=== PATIENT | female | born 1970 | race Caucasian/White ===

== ENCOUNTER 2016-12-08 07:56 | Inpatient (IN) | payer OTHER ==
[~2016-12-08] VITALS: Ht 160 cm; Wt 100.0 kg
[~2016-12-08 07:56] MED LIST: ALBU17I INH; ALLE30TA3 PO; CARB200T16 PO; FIORTAB4 PO; FLUTI220I INH; OMEP20CA5 PO; TOPI25 PO
[2016-12-08 07:58] VITALS: BP 125/72; PULSE 110; RESP 20; TEMP 98.5; O2SAT 96
[2016-12-08] MEDS ORDERED: DOXY1CAP74 PO (08:15)
[2016-12-08] MEDS ORDERED: OMEP20TA PO (08:23)
[2016-12-08] MEDS ORDERED: VERA40TA PO (08:23)
[2016-12-08] MEDS ORDERED: SODIUM CHLOR 0.9% 1000 ML INJ 800 ML IV ONE (08:23)
[2016-12-08] MEDS ORDERED: TEGR200T PO (08:23)
[2016-12-08] MEDS ORDERED: ZOCO20TA PO (08:23)
[2016-12-08] MEDS ORDERED: SODIUM CHLOR 0.9% 1000 ML INJ 1,000 ML IV ONE (08:23)
[2016-12-08] MEDS ORDERED: MORPHINE SULFATE 4 MG/ML INJ IV PUSH ONE (08:30)
[2016-12-08] MEDS ORDERED: ACETAMINOPHEN 325 MG TAB PO ONE (08:30)
--- NOTE | 2016-12-08 08:38 | PD ---
HPI Chief Complaint: Lump, Cyst, Hernia Time Seen by Provider: 08:18 Travel History International Travel<30 days: No Contact w/Intl Traveler<30days: No Traveled to known affect area: No History of Present Illness HPI 46-year-old female with history of seizure disorder on Tegretol, neutropenia and leukopenia thought to be secondary to Tegretol, status post incision and drainage of left axillary abscess yesterday by her primary care physician Dr. Samuel and started on doxycycline, here for evaluation of increased pain and chills. The patient reports feeling chills and having sweats throughout the night last night. Pain has increased in her left axilla, is moderate to severe , worse with movement and palpation, constant. PFSH Past Medical History Arthritis: Yes Asthma: Yes Autoimmune Disease: No Blood Disorders: No Anxiety: No Depression: Yes Heart Rhythm Problems: No Cancer: No Cardiovascular Problems: Yes High Cholesterol: No Chemotherapy: No Chest Pain: Yes Congestive Heart Failure: No COPD: No Cerebrovascular Accident: No Diabetes: No Diminished Hearing: No Endocrine: No GERD: Yes Glaucoma: No Genitourinary: Yes Headaches: Yes Hepatitis: No Hiatal Hernia: No Hypertension: No Immune Disorder: No Kidney Stones: No Medical other: Yes (MS) Musculoskeletal: Yes Neurologic: Yes Psychiatric: Yes Reproductive: No Respiratory: Yes Migraines: Yes Myocardial Infarction: No Radiation Therapy: No Renal Failure: No Seizures: Yes Sickle Cell Disease: No Sleep Apnea: No Thyroid Disease: No Ulcer: No Tetanus Vaccination: > 5 Years Influenza Vaccination: No ?: Not Menopausal: Yes : 1 Para: 0 : 1 Past Surgical History Abdominal Surgery: No AICD: No Appendectomy: No Arteriovenous Shunt: No Body Medical Devices: none Cardiac Surgery: No Cholecystectomy: No Ear Surgery: No Endocrine Surgery: No Eye Surgery: No Genitourinary Surgery: No Gynecologic Surgery: No Hysterectomy: Yes (2007) Insulin Pump: No Joint Replacement: No Oral Surgery: No Pacemaker: No Thoracic Surgery: Yes (THORACOTOMY LEFT 2004) Other Surgery: Yes (RT BREAST BIPOSIES X3 -UNKNOWN DATE) Social History Alcohol Use: No Tobacco Use: No Substance Use: No Allergies-Medications (Allergen,Severity, Reaction): Coded Allergies: Aspirin (Verified Allergy, Severe, nausea, 12/08/16) Codeine (Verified Allergy, Severe, rash, 12/08/16) Sulfa (Verified Allergy, Severe, rash, 12/08/16) Reported Meds & Prescriptions Reported Meds & Active Scripts Active Reported Verapamil (Verapamil HCl) 40 Mg Tab 40 Mg PO BID Zocor (Simvastatin) 20 Mg Tab 20 Mg PO DAILY Omeprazole 20 Mg Tab 20 Mg PO DAILY Tegretol (Carbamazepine) 200 Mg Tab 200 Mg PO BID Doxycycline 40 Mg Cap 40 Mg PO DAILY Review of Systems Except as stated in HPI: all other systems reviewed are Neg Physical Exam Narrative GENERAL: Well-developed, well-nourished, no acute distress. SKIN: Warm and dry. Left axilla with area of warmth and erythema and induration with an incision in the central aspect of induration with packing in place, no drainage. No signs of lymphangitis. HEAD: Atraumatic. Normocephalic. EYES: Pupils equal and round. No scleral icterus. No injection or drainage. ENT: Mucous membranes pink and moist. NECK: Trachea midline. No JVD. CARDIOVASCULAR: Tachycardic, rate 110, regular. No murmur appreciated. RESPIRATORY: No accessory muscle use. Clear to auscultation. Breath sounds equal bilaterally. GASTROINTESTINAL: Abdomen soft, non-tender, nondistended. MUSCULOSKELETAL: No obvious deformities. No clubbing. No cyanosis. No edema. NEUROLOGICAL: Awake and alert. No obvious cranial nerve deficits. Motor grossly within normal limits. Normal speech. PSYCHIATRIC: Appropriate mood and affect; insight and judgment normal. Data Data Last Documented VS Vital Signs Date Time Temp Pulse Resp B/P Pulse Ox O2 Delivery O2 Flow Rate FiO2 12/08/16 08:51 98 Room Air 12/08/16 07:58 98.5 110 20 125/72 Orders Complete Blood Count With Diff (12/08/16 08:23) Comprehensive Metabolic Panel (12/08/16 08:23) Lactic Acid Sepsis Protocol (12/08/16 08:23) Influenzae A/B Antigen (12/08/16 08:23) Blood Culture (12/08/16 08:23) Chest, Single Ap (12/08/16 08:23) Blood Glucose (12/08/16 08:23) Ecg Monitoring (12/08/16 08:23) Iv Access Insert/Monitor (12/08/16 08:23) Oximetry (12/08/16 08:23) Oxygen Administration (12/08/16 08:23) Acetaminophen (Tylenol) (12/08/16 08:30) Sodium Chlor 0.9% 1000 Ml Inj (Ns 1000 M (12/08/16 08:23) Sodium Chlor 0.9% 1000 Ml Inj (Ns 1000 M (12/08/16 08:23) Morphine Inj (Morphine Inj) (12/08/16 08:30) Vancomycin Inj (Vancomycin Inj) (12/08/16 08:45) Labs Laboratory Tests Test 12/08/16 08:30 White Blood Count 10.9 TH/MM3 Red Blood Count 4.16 MIL/MM3 Hemoglobin 12.5 GM/DL Hematocrit 36.1 % Mean Corpuscular Volume 86.9 FL Mean Corpuscular Hemoglobin 30.0 PG Mean Corpuscular Hemoglobin 34.5 % Concent Red Cell Distribution Width 13.5 % Platelet Count 170 TH/MM3 Mean Platelet Volume 7.9 FL Neutrophils (%) (Auto) 76.6 % Lymphocytes (%) (Auto) 12.2 % Monocytes (%) (Auto) 10.7 % Eosinophils (%) (Auto) 0.3 % Basophils (%) (Auto) 0.2 % Neutrophils # (Auto) 8.3 TH/MM3 Lymphocytes # (Auto) 1.3 TH/MM3 Monocytes # (Auto) 1.2 TH/MM3 Eosinophils # (Auto) 0.0 TH/MM3 Basophils # (Auto) 0.0 TH/MM3 CBC Comment DIFF FINAL Differential Comment Sodium Level 137 MEQ/L Potassium Level 3.6 MEQ/L Chloride Level 102 MEQ/L Carbon Dioxide Level 25.4 MEQ/L Anion Gap 10 MEQ/L Blood Urea Nitrogen 8 MG/DL Creatinine 0.72 MG/DL Estimat Glomerular Filtration 87 ML/MIN Rate Random Glucose 117 MG/DL Lactic Acid Level 0.9 mmol/L Calcium Level 8.5 MG/DL Total Bilirubin 0.6 MG/DL Aspartate Amino Transf 11 U/L (AST/SGOT) Alanine Aminotransferase 22 U/L (ALT/SGPT) Alkaline Phosphatase 79 U/L Total Protein 7.1 GM/DL Albumin 3.3 GM/DL [facility] Medical Decision Making Medical Screen Exam Complete: Yes Emergency Medical Condition: Yes Medical Record Reviewed: Yes Differential Diagnosis Sepsis, bacteremia, cellulitis, abscess, neutropenia Narrative Course Initial vital signs show heart rate 110, blood pressure 125/72, pulse ox 98% on room air, oral temp of 98.5F. CBC is essentially unremarkable. CMP is essentially unremarkable. Lactic acid is 0.9. Chest x-ray shows no acute disease. Patient was given 2 L of normal saline and IV vancomycin. Case discussed with the patient's primary care physician Dr. Samuel who performed incision and drainage of left axillary abscess yesterday. He states that the patient was recently taken off of Aubagio, and she may have some residual immunosuppression from this medication. He agrees with admitting the patient for overnight observation and IV antibiotics. Case discussed with [facility] hospitalist Dr. Rodgers who will admit the patient to his service. Diagnosis Primary Impression: Abscess of left axilla Additional Impression: SIRS (systemic inflammatory response syndrome) Admitting Information Admitting Physician Requests: Observation Jermain See MD Dec 08, 2016 08:38
[2016-12-08] MEDS ORDERED: VANCOMYCIN INJ 1,000 MG in SODIUM CHLOR 0.9% 250 ML INJ 250 ML IV ONE (08:45)
[2016-12-08 08:51] VITALS: O2SAT 98
[2016-12-08 08:59] LABS: AUTOMATED NEUTROPHIL # 8.3 TH/MM3 (1.8-7.7); BASOPHIL % 0.2 % (0.0-2.0); EOSINOPHIL % 0.3 % (0.0-4.0); HEMATOCRIT 36.1 % (35.0-46.0); HEMO FLAGS DIFF FINAL; LYMPH % 12.2 % (9.0-44.0); LYMPHOCYTE # 1.3 TH/MM3 (1.0-4.8); MEAN CELL VOLUME 86.9 FL (80.0-100.0); MEAN CORPUSCULAR HGB CONC 34.5 % (32.0-36.0); MONO % 10.7 % (0.0-8.0); NEUT % 76.6 % (16.0-70.0); PLATELET COUNT 170 TH/MM3 (150-450); RED BLOOD COUNT 4.16 MIL/MM3 (4.00-5.30); RED CELL DISTRIBUTION WIDTH 13.5 % (11.6-17.2); WHITE BLOOD COUNT 10.9 TH/MM3 (4.0-11.0)
[2016-12-08 09:04] LABS: ANION GAP 10 MEQ/L (5-15); AST (GOT) 11 U/L (15-37); BICARBONATE 25.4 MEQ/L (21.0-32.0); BLOOD UREA NITROGEN 8 MG/DL (7-18); CHLORIDE 102 MEQ/L (98-107); GLOMERULAR FILTRATION RATE 87 ML/MIN (>89); POTASSIUM 3.6 MEQ/L (3.5-5.1); SODIUM (NA) 137 MEQ/L (136-145)
[2016-12-08 09:07] LABS: ALKALINE PHOSPHATASE 79 U/L (45-117); ALT (GPT) 22 U/L (10-53); TOTAL BILIRUBIN ADULT 0.6 MG/DL (0.2-1.0)
--- NOTE | 2016-12-08 09:15 | RADRPT ---
EXAM DATE/TIME: 12/08/2016 08:39 [facility] COMPARISON: No previous studies available for comparison. INDICATIONS : Cough, fever, and hives. MEDICAL HISTORY : None. SURGICAL HISTORY : None. ENCOUNTER: Initial ACUITY: 1 day PAIN SCORE: 0/10 LOCATION: Bilateral chest FINDINGS: A single view of the chest demonstrates the lungs to be symmetrically aerated without evidence of mas s, infiltrate or effusion. The cardiomediastinal contours are unremarkable. Osseous structures are intact. CONCLUSION: No acute disease. Mylene Muir MD on December 08, 2016 at 9:14 Board Certified Radiologist. This report was verified electronically.
[2016-12-08 12:27] VITALS: BP 129/73; PULSE 92; RESP 16; TEMP 98.1; O2SAT 98
[2016-12-08] MEDS ORDERED: MORPHINE SULFATE 4 MG/ML INJ IV PUSH PRN ×2 (14:30)
[2016-12-08] MEDS ORDERED: Vancomycin Consult Pharmacy 1 EA OTHER SCH (14:30)
--- NOTE | 2016-12-08 14:33 | HHI.HP ---
HPI Service [facility] Hospitalists Primary Care Physician Francis Samuel, PhD, MD Admission Diagnosis left axillary abscess, SIRS Chief Complaint: left axilla pain. Travel History International Travel<30 Days: No Contact w/Intl Traveler <30 Da: No Traveled to Known Affected Are: No History of Present Illness Pt is 45 yo dx with MS who developed left axillary abscess this past week. Went to pcp yesterday and had incision and drainage. gauze packed. doxy started. today more nausea and pain. fever and chills. In ED noted to have cellulitis extending from the wound mostly posterior. given vanc in ED. Review of Systems Other left axillary abscess f/c nausea Past Family Social History Past Medical History seizure d/o hyperlipidema gerd migraines multiple sclerosis Reported Medications Verapamil (Verapamil HCl) 40 Mg Tab 40 Mg PO BID Zocor (Simvastatin) 20 Mg Tab 20 Mg PO DAILY Omeprazole 20 Mg Tab 20 Mg PO DAILY Tegretol (Carbamazepine) 200 Mg Tab 200 Mg PO BID Doxycycline 40 Mg Cap 40 Mg PO DAILY Allergies: Coded Allergies: Aspirin (Verified Allergy, Severe, nausea, 12/08/16) Codeine (Verified Allergy, Severe, rash, 12/08/16) Sulfa (Verified Allergy, Severe, rash, 12/08/16) Family History nc Social History no etoh/tob Physical Exam Vital Signs heent neg heart reg lung cta abd s/nt ext no edema Left axilla: gauze packed into small incision with some purelence draining. the surrounding tissue is erythematous/tender and swollen and mostly extending posteriorly. Vital Signs Date Time Temp Pulse Resp B/P Pulse Ox O2 Delivery O2 Flow Rate FiO2 12/08/16 12:27 98.1 92 16 129/73 98 Room Air 12/08/16 09:31 18 12/08/16 08:51 98 Room Air 12/08/16 08:51 98 Room Air 12/08/16 07:58 98.5 110 20 125/72 96 Room Air Laboratory Laboratory Tests Test 12/08/16 08:30 White Blood Count 10.9 Red Blood Count 4.16 Hemoglobin 12.5 Hematocrit 36.1 Mean Corpuscular Volume 86.9 Mean Corpuscular Hemoglobin 30.0 Mean Corpuscular Hemoglobin 34.5 Concent Red Cell Distribution Width 13.5 Platelet Count 170 Mean Platelet Volume 7.9 Neutrophils (%) (Auto) 76.6 Lymphocytes (%) (Auto) 12.2 Monocytes (%) (Auto) 10.7 Eosinophils (%) (Auto) 0.3 Basophils (%) (Auto) 0.2 Neutrophils # (Auto) 8.3 Lymphocytes # (Auto) 1.3 Monocytes # (Auto) 1.2 Eosinophils # (Auto) 0.0 Basophils # (Auto) 0.0 CBC Comment DIFF FINAL Differential Comment Sodium Level 137 Potassium Level 3.6 Chloride Level 102 Carbon Dioxide Level 25.4 Anion Gap 10 Blood Urea Nitrogen 8 Creatinine 0.72 Estimat Glomerular Filtration 87 Rate Random Glucose 117 Lactic Acid Level 0.9 Calcium Level 8.5 Total Bilirubin 0.6 Aspartate Amino Transf 11 (AST/SGOT) Alanine Aminotransferase 22 (ALT/SGPT) Alkaline Phosphatase 79 Total Protein 7.1 Albumin 3.3 Date/Time Procedure Status Source Growth 12/08/16 08:35 Aerobic Blood Culture Received Blood Peripheral Pending 12/08/16 08:35 Anaerobic Blood Culture Received Blood Peripheral Pending 12/08/16 08:30 Influenza Types A,B Antigen (ANUJ) - Final Complete Nasal Washing NEGATIVE FOR FLU A AND B ANTIGEN.... Result Diagram: 12/08/1630 12/08/1630 Assessment and Plan Problem List: (1) Abscess of left axilla Status: Acute Plan: Left axillary abscess s/p I/D 12/07 by pcp now with progressive cellulitis. probably staph or strep. gs and cx taken from the left axillary wound will change packing daily get soft tissue u/s to evaluate for more abscess and if so then consult GS broad abx coverage for now. f/u blood cx morphine and zofran for pain/nausea dvt prophylaxis. I vesna line around the cellulitis and nursing to call if extending. (2) Cellulitis Status: Acute Plan: see above (3) Multiple sclerosis Status: Chronic Plan: no treatment x 1 month. (4) GERD (gastroesophageal reflux disease) Status: Chronic Travis Rodgers MD Dec 08, 2016 14:33
[2016-12-08] MEDS: ONDANSETRON HCL 4 MG/2 ML VIAL IV PUSH PRN ×2 (14:42→18:55)
[2016-12-08] MEDS: VANCOMYCIN 1,500 MG/NS 500 ML IV SCH ×2 (16:21)
[2016-12-08 16:30] VITALS: BP 125/66; PULSE 90; RESP 16; TEMP 98.3; O2SAT 94
--- NOTE | 2016-12-08 17:24 | RADRPT ---
EXAM DATE/TIME: 12/08/2016 16:50 [facility] COMPARISON: No previous studies available for comparison. INDICATIONS : Abscess. MEDICAL HISTORY : Gastroesophageal reflux disease. Arthritis. Seizures. Migraines. Chest pain. Asthma. Urinary tract infections. Depression. SURGICAL HISTORY : Hysterectomy. Left thoracotomy. Athroscopic knee. Right breast biopsy x3. ENCOUNTER: Initial ACUITY: 1 week PAIN SCORE: 7/10 LOCATION: Left arm. AREA EVALUATED: Left axilla. FINDINGS: MASSES: None. FLUID COLLECTIONS: There is a small complex collection beneath the incision measuring 1.8 x 0.9 x 1.3 cm which is nonspe cific. OTHER: Negative. CONCLUSION: Small complex collection beneath the incision measuring 1.8 x 0.9 x 1.3 cm which is n onspecific. Gonsalo Dye MD on December 08, 2016 at 17:21 Board Certified Radiologist. This report was verified electronically.
[2016-12-08] MEDS: PIPERACIL-TAZO 3.375 GM PREMIX 50 ML IV SCH ×2 (18:55→22:21)
[2016-12-08 20:57] VITALS: BP 117/68; PULSE 92; RESP 18; TEMP 98.3; O2SAT 98
[2016-12-08] MEDS ORDERED: VERAPAMIL HCL 40 MG TAB PO SCH (21:00)
[2016-12-08] MEDS: carBAMazepine 200 MG TAB PO SCH (22:20)
[2016-12-09] VITALS (7 sets, daily range): BP systolic 114–128; BP diastolic 55–76; PULSE 81–89; RESP 16–20; TEMP 97.4–98.4; O2SAT 96–99
[2016-12-09] MEDS: PIPERACIL-TAZO 3.375 GM PREMIX 50 ML IV SCH ×4 (04:14→22:17)
[2016-12-09] MEDS: VANCOMYCIN 1,500 MG/NS 500 ML IV SCH ×4 (05:04→16:24)
[2016-12-09] MEDS: ONDANSETRON HCL 4 MG/2 ML VIAL IV PUSH PRN ×3 (05:07→22:18)
[2016-12-09 07:28] LABS: AUTOMATED NEUTROPHIL # 7.9 TH/MM3 (1.8-7.7); BASOPHIL % 0.4 % (0.0-2.0); EOSINOPHIL # 0.1 TH/MM3 (0-0.4); EOSINOPHIL % 0.6 % (0.0-4.0); HEMATOCRIT 34.2 % (35.0-46.0); HEMO FLAGS DIFF FINAL; LYMPH % 16.6 % (9.0-44.0); LYMPHOCYTE # 1.8 TH/MM3 (1.0-4.8); MEAN CELL VOLUME 87.6 FL (80.0-100.0); MEAN CORPUSCULAR HEMOGLOBIN 29.8 PG (27.0-34.0); MONO % 9.5 % (0.0-8.0); NEUT % 72.9 % (16.0-70.0); PLATELET COUNT 180 TH/MM3 (150-450); RED BLOOD COUNT 3.91 MIL/MM3 (4.00-5.30); RED CELL DISTRIBUTION WIDTH 13.2 % (11.6-17.2); WHITE BLOOD COUNT 10.9 TH/MM3 (4.0-11.0)
[2016-12-09 07:49] LABS: BICARBONATE 26.8 MEQ/L (21.0-32.0); POTASSIUM 3.6 MEQ/L (3.5-5.1)
[2016-12-09] MEDS: PRAVASTATIN SOD 40 MG TAB PO SCH (09:59)
[2016-12-09] MEDS: carBAMazepine 200 MG TAB PO SCH ×2 (10:00→22:16)
[2016-12-09] MEDS: PANTOPRAZOLE SOD 20 MG DELAYED RELEASE TAB PO SCH (10:00)
--- NOTE | 2016-12-09 14:01 | HHI.PR ---
Subjective Remarks pt can lower her left arm better. has h/a and missed her verapamil last night and this AM Objective Vitals heent neg heart reg lung cta abd s/nt ext left axilla. open wound changed packing..pus. surrounding cellulitis mild extended past the line. Vital Signs Date Time Temp Pulse Resp B/P Pulse Ox O2 Delivery O2 Flow Rate FiO2 12/09/16 11:35 98.3 81 16 121/76 98 12/09/16 07:42 98.4 83 16 123/74 98 12/09/16 04:44 97.9 86 16 115/58 98 12/09/16 00:07 98.1 89 16 118/55 97 12/08/16 20:57 98.3 92 18 117/68 98 12/08/16 16:30 98.3 90 16 125/66 94 Result Diagram: 12/09/16 0620 12/09/16 0620 A/P Problem List: (1) Abscess of left axilla Status: Acute Plan: Left axillary abscess s/p I/D 12/07 by pcp now with progressive cellulitis. probably staph or strep. u/s noted gs and cx taken from the left axillary wound will change packing daily broad abx coverage for now. f/u blood cx morphine and zofran for pain/nausea dvt prophylaxis. I vesna line around the cellulitis and nursing to call if extending. needs admission. (2) Cellulitis Status: Acute Plan: see above (3) Multiple sclerosis Status: Chronic Plan: no treatment x 1 month. (4) GERD (gastroesophageal reflux disease) Status: Chronic (5) Migraine Status: Acute Plan: takes maxalt prn and verapamil resume verapamil. Travis Rodgers MD Dec 09, 2016 14:01
[2016-12-09] MEDS ORDERED: VERAPAMIL HCL 40 MG TAB PO ONE (15:00)
[2016-12-09] MEDS ORDERED: ACETAMINOPHEN 1000 MG/100 ML VIAL IV PRN (17:00)
[2016-12-09] MEDS: ACETAMINOPHEN 325 MG TAB PO PRN ×2 (17:48→22:18)
[2016-12-09] MEDS: VERAPAMIL HCL 80 MG TAB PO SCH (22:16)
[2016-12-10] MEDS ORDERED: HYDROmorphone HCL PF 1 MG/ML VIAL IV ONE (01:00)
[2016-12-10 04:48] VITALS: BP 124/75; PULSE 86; RESP 20; TEMP 97.9; O2SAT 96
[2016-12-10] MEDS: VANCOMYCIN 1,500 MG/NS 500 ML IV SCH ×2 (05:07)
[2016-12-10] MEDS: ONDANSETRON HCL 4 MG/2 ML VIAL IV PUSH PRN ×2 (05:33→10:37)
[2016-12-10] MEDS: PIPERACIL-TAZO 3.375 GM PREMIX 50 ML IV SCH ×4 (06:39→21:50)
[2016-12-10 06:58] VITALS: BP 122/64; PULSE 80; RESP 16; TEMP 96.2; O2SAT 96
[2016-12-10] MEDS: PRAVASTATIN SOD 40 MG TAB PO SCH (08:31)
[2016-12-10] MEDS: carBAMazepine 200 MG TAB PO SCH ×2 (08:31→21:50)
[2016-12-10] MEDS: VERAPAMIL HCL 40 MG TAB PO SCH (08:31)
[2016-12-10] MEDS: PANTOPRAZOLE SOD 20 MG DELAYED RELEASE TAB PO SCH (08:31)
[2016-12-10] MEDS: ACETAMINOPHEN 325 MG TAB PO PRN (10:37)
[2016-12-10 12:00] VITALS: BP 112/67; PULSE 82; RESP 18; TEMP 97.2; O2SAT 98
[2016-12-10] MEDS ORDERED: FLUCONAZOLE 100 MG TAB PO ONE ×2 (12:15→16:30)
--- NOTE | 2016-12-10 12:35 | HHI.PR ---
Subjective Remarks still with left axillary pain. Objective Vitals heent neg heart reg lung cta abd s/nt ext left axilla incision with minimal pus. surrounding erythema with extention beyond the ink lines. ?some fluctuance of adjacent erythema. Vital Signs Date Time Temp Pulse Resp B/P Pulse Ox O2 Delivery O2 Flow Rate FiO2 12/10/16 06:58 96.2 80 16 122/64 96 12/10/16 04:48 97.9 86 20 124/75 96 12/09/16 23:45 97.4 89 20 128/70 99 12/09/16 23:22 22 12/09/16 20:15 97.6 85 20 124/72 99 12/09/16 15:56 97.4 87 16 114/59 96 12/09/16 12/09/16 12/10/16 15:00 23:00 07:00 Intake Total 1200 ml Balance 1200 ml Intake Oral 500 ml IV Total 700 ml # Voids 4 1 Result Diagram: 12/09/16 0620 12/09/16 0620 A/P Problem List: (1) Abscess of left axilla Status: Acute Plan: Left axillary abscess s/p I/D 12/07 by pcp now with progressive cellulitis. mrsa growing from cx I took from wound 12/08 u/s suggested some residual pocket of fluid beneath the incision. ?new area of fluctuance I discussed the case with gen surgery to evaluate today and see if they feel any need to open wound further to drain. ..or to get repeat imaging. change packing daily d/c vanco. start daptomycin today. will probably stop zosyn today f/u blood cx prn iv pain meds and antiemetics diflucan for yeast infection dvt prophylaxis. addendum: pt seen by gen surg. npo after midnight for possible OR and I/D of left axilla. discussed with gen surg. (2) Cellulitis Status: Acute Plan: see above (3) Multiple sclerosis Status: Chronic Plan: no treatment x 1 month. (4) GERD (gastroesophageal reflux disease) Status: Chronic (5) Migraine Status: Acute Plan: takes maxalt prn and verapamil resume verapamil. Travis Rodgers MD Dec 10, 2016 12:35
[2016-12-10] MEDS: HYDROmorphone HCL PF 1 MG/ML VIAL IV PUSH PRN ×2 (12:43→21:52)
[2016-12-10] MEDS ORDERED: DAPTOmycin INJ 400 MG in SODIUM CHLORIDE 0.9% INJ 100 ML IV SCH (13:00)
[2016-12-10] MEDS: PROMETHAZINE HCL 25 MG TAB PO PRN ×2 (13:26→21:50)
--- NOTE | 2016-12-10 13:39 | EKG ---
Date Performed: 12/10/2016 Time Performed: 00:42:02 PTAGE: 46 years EKG: Sinus rhythm NONSPECIFIC T-WAVE ABNORMALITY BORDERLINE ECG Compared to prior tracing no significant change PREVIOUS TRACING : 12/08/2006 16.25 DOCTOR: Edward Munson Interpretating Date/Time 12/10/2016 13:37:18
[2016-12-10] MEDS ORDERED: PHARMACY ORDERED LAB XX ONE (15:45)
[2016-12-10] MEDS ORDERED: PROMETHAZINE INJ 25 MG/ML VIAL IM ONE (16:00)
[2016-12-10 17:45] VITALS: BP 123/76; PULSE 76; RESP 16; TEMP 98; O2SAT 99
--- NOTE | 2016-12-10 18:57 | MB ---
cc: AAMIRSHANEL DATE OF CONSULTATION 12/10/2016 DATE OF 1970 REASON FOR CONSULTATION Left axillary abscess. HISTORY OF THE PRESENT ILLNESS This is a 45-year-old female who was noted to have abscess in the left axilla. She was seen by her primary care physician and it was drained at that time in his office. She states that purulent fluid was expressed. The patient felt that there was no improvement in her symptoms and she presented to the emergency room for evaluation. She was admitted and placed on IV antibiotics. Ultrasound was obtained which revealed individual abscess that was small, approximately 1.3 cm. The patient's erythema was noted to increase while on antibiotics and surgical evaluation was requested. The patient's primary doctor changed the antibiotics on evaluation today as well. The patient continues with pain in the left axilla. No fevers. A small amount of drainage from the wound. PAST MEDICAL HISTORY She has a medical history significant for: 1. Migraines. 2. Multiple sclerosis. 3. Hyperlipidemia. 4. And seizure disorder. PAST SURGICAL HISTORY Above. MEDICATIONS She is on medications at home that include: 1. Omeprazole. 2. Tegretol. 3. Doxycycline. 4. Zocor. 5. Verapamil. ALLERGIES SHE HAS ALLERGY TO CODEINE, SULFA AND ASPIRIN. SOCIAL HISTORY She does not smoke or drink alcohol. FAMILY HISTORY Noncontributory. REVIEW OF SYSTEMS Significant for above. All other 10 point review negative. PHYSICAL EXAMINATION GENERAL: The patient is lying in stretcher in no acute distress. HEENT: Pupils are equal, round and reactive. Trachea is midline. NECK: Without JVD. LYMPHATICS: Left axilla indurated area small sub centimeter incision, small amount of drainage on the patient's gown with surrounding erythema extending beyond the pen javier. Fluctuance. LUNGS: Respirations clear. CARDIOVASCULAR: Regular. MUSCULOSKELETAL: No deformities. NEUROLOGICAL: Nonfocal. LABORATORY DATA The patient's white blood cell count is 10, neutrophils are 72. She had culture of her wound that revealed MRSA. Sensitivity is present. ASSESSMENT This is a patient with a left axillary abscess that has been drained with a persistent induration. At present we will recommend continued new antibiotics. I will re-evaluate in the a.m. If the area of fluctuance is more prominent, we will take to the operating room for drainage. I will make n.p.o. past midnight. MD MANDY Marrero/CHATO /3:44 PM /6:35 PM
[2016-12-10 19:37] VITALS: BP 135/76; PULSE 83; RESP 20; TEMP 97.8; O2SAT 98
[2016-12-10] MEDS ORDERED: PROMETHAZINE INJ 25 MG/ML VIAL IM PRN (20:00)
[2016-12-10] MEDS: VERAPAMIL HCL 80 MG TAB PO SCH (21:00)
[2016-12-11 00:13] VITALS: BP 117/58; PULSE 83; RESP 20; TEMP 98.6; O2SAT 95
[2016-12-11] MEDS: PIPERACIL-TAZO 3.375 GM PREMIX 50 ML IV SCH ×4 (03:28→21:24)
[2016-12-11 04:52] VITALS: BP 127/78; PULSE 78; RESP 20; TEMP 98.7
[2016-12-11 08:00] VITALS: BP 114/72; PULSE 78; RESP 20; TEMP 97.9; O2SAT 93
[2016-12-11] MEDS: VERAPAMIL HCL 40 MG TAB PO SCH (09:18)
[2016-12-11] MEDS: PANTOPRAZOLE SOD 20 MG DELAYED RELEASE TAB PO SCH (09:18)
[2016-12-11] MEDS: carBAMazepine 200 MG TAB PO SCH ×2 (09:18→20:47)
[2016-12-11] MEDS: PRAVASTATIN SOD 40 MG TAB PO SCH (09:18)
[2016-12-11] MEDS: HYDROmorphone HCL PF 1 MG/ML VIAL IV PUSH PRN ×3 (09:19→20:47)
[2016-12-11] MEDS: ONDANSETRON HCL 4 MG/2 ML VIAL IV PUSH PRN ×3 (09:19→20:47)
[2016-12-11 12:00] VITALS: BP 110/69; PULSE 78; RESP 20; TEMP 97.2; O2SAT 95
[2016-12-11] MEDS: LINEZOLID 600 MG PREMIX 300 ML IV SCH (13:08)
[2016-12-11 16:00] VITALS: BP 119/75; PULSE 82; RESP 20; TEMP 96.7; O2SAT 95
[2016-12-11 19:12] VITALS: BP 122/71; PULSE 80; RESP 20; TEMP 98.1; O2SAT 97
--- NOTE | 2016-12-11 19:15 | HHI.PR ---
Subjective Remarks C/O 4 episodes of diarrhea today. Objective Vitals Vital Signs Date Time Temp Pulse Resp B/P Pulse Ox O2 Delivery O2 Flow Rate FiO2 12/11/16 16:00 96.7 82 20 119/75 95 12/11/16 12:00 97.2 78 20 110/69 95 12/11/16 08:00 97.9 78 20 114/72 93 12/11/16 04:52 98.7 78 20 127/78 12/11/16 00:13 98.6 83 20 117/58 95 12/10/16 22:24 16 12/10/16 19:37 97.8 83 20 135/76 98 12/10/16 12/10/16 12/11/16 15:00 23:00 07:00 Intake Total 830 ml Output Total 450 ml Balance 830 ml -450 ml Intake Oral 580 ml IV Total 250 ml Output Urine Total 450 ml # Voids 2 1 # Bowel Movements 1 Result Diagram: 12/09/16 0620 12/11/16 0358 Imaging Last Impressions Chest X-Ray 12/08/16 0823 Signed Impressions: Service Date/Time: Thursday, December 08, 2016 08:39 - CONCLUSION: No acute disease. Mylene Muir MD Soft Tissue Ultrasound 12/08/16 0000 Signed Impressions: Service Date/Time: Thursday, December 08, 2016 16:50 - CONCLUSION: Small complex collection beneath the incision measuring 1.8 x 0.9 x 1.3 cm which is nonspecific. Gonsalo Dye MD Objective Remarks GENERAL: This is a well-nourished, well-developed patient, in no apparent distress. CARDIOVASCULAR: Regular rate and rhythm without murmurs, gallops, or rubs. RESPIRATORY: Clear to auscultation. Breath sounds equal bilaterally. No wheezes , rales, or rhonchi. GASTROINTESTINAL: Abdomen soft, non-tender, nondistended. Normal active bowel sounds MUSCULOSKELETAL: Extremities without clubbing, cyanosis, or edema. NEURO: Alert & Oriented x4 to person, place, time, situation. Moves all ext x4 skin: erythema and induration at pt's right axilla purulent fluid expressed from small surgical wound at pt's left axilla A/P Problem List: (1) Abscess of left axilla Status: Acute Plan: - comgmt with General Surgery Left axillary abscess s/p I/D 12/07 by pcp now with progressive cellulitis. mrsa growing from cx I took from wound 12/08 u/s suggested some residual pocket of fluid beneath the incision. ?new area of fluctuance - zosyn/zyvox - pt reasses by Genral Surgery today, no need for I&D at this time - continue to observe on antibiotic therapy - r/o infectious diarrhea, doubt - consult ID for assistance with ABX regimen (2) Cellulitis Status: Acute Plan: see above (3) Multiple sclerosis Status: Chronic Plan: no treatment x 1 month. (4) GERD (gastroesophageal reflux disease) Status: Chronic (5) Migraine Status: Acute Plan: takes maxalt prn and verapamil resume verapamil. Evans Acevedo DO Dec 11, 2016 19:15
[2016-12-11] MEDS: VERAPAMIL HCL 80 MG TAB PO SCH (20:47)
[2016-12-12 01:03] VITALS: BP 118/68; PULSE 88; RESP 18; TEMP 98; O2SAT 98
[2016-12-12] MEDS: LINEZOLID 600 MG PREMIX 300 ML IV SCH ×2 (02:00→13:59)
[2016-12-12] MEDS: HYDROmorphone HCL PF 1 MG/ML VIAL IV PUSH PRN ×3 (02:15→22:00)
[2016-12-12] MEDS: ONDANSETRON HCL 4 MG/2 ML VIAL IV PUSH PRN ×3 (02:15→21:59)
[2016-12-12] MEDS: PIPERACIL-TAZO 3.375 GM PREMIX 50 ML IV SCH ×2 (04:00→08:54)
[2016-12-12 06:00] VITALS: BP 127/84; PULSE 78; RESP 21; TEMP 98.8; O2SAT 97
[2016-12-12] MEDS: carBAMazepine 200 MG TAB PO SCH ×2 (08:53→21:59)
[2016-12-12] MEDS: VERAPAMIL HCL 40 MG TAB PO SCH (08:53)
[2016-12-12] MEDS: PANTOPRAZOLE SOD 20 MG DELAYED RELEASE TAB PO SCH (08:53)
[2016-12-12] MEDS: PRAVASTATIN SOD 40 MG TAB PO SCH (08:53)
[2016-12-12 09:42] VITALS: BP 119/75; PULSE 80; RESP 18; TEMP 97.1; O2SAT 96
[2016-12-12] MEDS ORDERED: ONDANSETRON HCL 4 MG/2 ML VIAL IV PUSH ONE (10:48)
[2016-12-12] MEDS ORDERED: PROPOFOL 200 MG/20 ML AMP IV ONE (10:48)
--- NOTE | 2016-12-12 12:43 | HHI.PR ---
Subjective Remarks Pt c/o continued left axillary pain and swelling. Objective Vitals Vital Signs Date Time Temp Pulse Resp B/P Pulse Ox O2 Delivery O2 Flow Rate FiO2 12/12/16 09:42 97.1 80 18 119/75 96 12/12/16 06:00 98.8 78 21 127/84 97 12/12/16 03:01 16 12/12/16 01:03 98.0 88 18 118/68 98 12/11/16 19:12 98.1 80 20 122/71 97 12/11/16 16:00 96.7 82 20 119/75 95 12/11/16 12/11/16 12/12/16 15:00 23:00 07:00 Intake Total 620 ml Balance 620 ml Intake Oral 620 ml # Voids 2 2 # Bowel Movements 1 1 1 Result Diagram: 12/09/16 0620 12/11/16 0358 Imaging Last Impressions Chest X-Ray 12/08/16 0823 Signed Impressions: Service Date/Time: Thursday, December 08, 2016 08:39 - CONCLUSION: No acute disease. Mylene Muir MD Soft Tissue Ultrasound 12/08/16 0000 Signed Impressions: Service Date/Time: Thursday, December 08, 2016 16:50 - CONCLUSION: Small complex collection beneath the incision measuring 1.8 x 0.9 x 1.3 cm which is nonspecific. Gonsalo Dye MD Objective Remarks GENERAL: This is a well-nourished, well-developed patient, in no apparent distress. CARDIOVASCULAR: Regular rate and rhythm without murmurs, gallops, or rubs. RESPIRATORY: Clear to auscultation. Breath sounds equal bilaterally. No wheezes , rales, or rhonchi. GASTROINTESTINAL: Abdomen soft, non-tender, nondistended. Normal active bowel sounds MUSCULOSKELETAL: Extremities without clubbing, cyanosis, or edema. NEURO: Alert & Oriented x4 to person, place, time, situation. Moves all ext x4 skin: erythema and induration at pt's right axilla purulent fluid expressed from small surgical wound at pt's left axilla A/P Problem List: (1) Abscess of left axilla Status: Acute Plan: - comgmt with General Surgery - Left axillary abscess s/p I/D 12/07 by pcp; now with progressive cellulitis. - mrsa growing from 12/08/15 culture - u/s (12/08/16) suggested some residual pocket of fluid beneath - zosyn/zyvox - Case d/w Dr. Paula, General Surgery. He will take pt to OR today for I&D - Case d/w ID, Dr. Alejo. He will evaluate later today - anticipate discharge in 1-2 days (2) Cellulitis Status: Acute Plan: see above (3) Multiple sclerosis Status: Chronic Plan: no treatment x 1 month. (4) GERD (gastroesophageal reflux disease) Status: Chronic (5) Migraine Status: Acute Plan: takes maxalt prn and verapamil resume verapamil. Evans Acevedo DO Dec 12, 2016 12:43
[2016-12-12 13:20] VITALS: BP 137/73; PULSE 78; RESP 16; TEMP 97.8; O2SAT 94
[2016-12-12] MEDS ORDERED: LIDOCAINE 1%/EPINEPHrine 1:100,000 SOLN 20 ML VIAL ONE (14:32)
[2016-12-12] MEDS ORDERED: GENTAMICIN SULFATE 80 MG/2 ML VIAL ONE (14:32)
[2016-12-12] MEDS ORDERED: MIDAZOLAM HCL 2 MG/2 ML VIAL ONE (15:02)
[2016-12-12] MEDS ORDERED: FAMOTIDINE 20 MG/2 ML VIAL ONE (15:02)
[2016-12-12] MEDS ORDERED: DEXAMETHASONE SOD PHOS 4 MG/ML VIAL ONE (15:02)
[2016-12-12] MEDS ORDERED: fentaNYL CITRATE 250 MCG/5 ML AMP ONE (15:55)
[2016-12-12] MEDS ORDERED: DO NOT ADM ANY ANTICOAGULANT DRUGS XX PRN (16:15)
--- NOTE | 2016-12-12 16:31 | MB ---
cc: AMITA PINEDO MD DATE OF CONSULTATION: 12/12/[address] Acevedo REASON FOR CONSULTATION: Left axilla abscess due to MRSA. HISTORY OF PRESENT ILLNESS This is a 46-year-old white female who developed swelling and pain at the left axilla which began approximately 2 weeks ago. The patient reported that she developed a small lump at the axilla a week later. She has saw her primary care physician who lanced the area and sent a culture. The culture came back with MRSA. The patient presented to emergency department 12/08/2016. She had been started on oral doxycycline after the lancing of the area five days ago. This did not lead to response and she continued to have swelling and redness and she developed chills and fever and nausea. She was evaluated emergency department and she was given a dose of vancomycin and then Daptomycin and currently she is on linezolid. She was evaluated by surgery who felt that there was no need for additional incision. Temperature is improved but she feels very tired. She also has pain in the left axilla ongoing and has scant drainage coming from the area that was lanced. She has been afebrile here in the hospital and white count was 10.9 on admission. Ultrasound of the axilla showed a small complex collection beneath the incision measuring 1.8 x 0.9 x 1.3 cm. Chest x-ray Shows no acute disease. PAST MEDICAL HISTORY: 1. Past medical history asthma 2. seizure disorder 3. multiple sclerosis. 4. also had arthritis. 5. History of thoracotomy in 2004. ALLERGIES SULFA ASPIRIN CODEINE MEDICATIONS: 1. Linezolid 2. Phenergan 3. Dilaudid 4. Verapamil 5. Protonix 6. Pravachol 7. Tegretol 8. Piperacillin/Tazobactam SOCIAL HISTORY No tobacco, no alcohol. No illicit drugs. FAMILY HISTORY Noncontributory. REVIEW OF SYSTEMS Significant for tiredness, left axilla pain and diarrhea. PHYSICAL EXAMINATION IN GENERAL: This is a well-developed female moderately obese in no acute distress. VITAL SIGNS: Include temperature 97.1, BP 119/75, respirations 18. HEAD, EYES, EARS, NOSE, AND THROAT: Head is atraumatic. Extraocular movements grossly intact, pupils reactive to light. No icterus. Oropharynx no visible lesions. NECK: Supple. No adenopathy. No swelling. LUNGS: Clear breath sounds. HEART: Regular S1, S2, without murmurs, rubs or gallops. ABDOMEN: Bowel sounds present, soft, nontender. RECTAL Not performed. LYMPHATICS: no adenopathy. EXTREMITIES: The left axilla has an area of erythema and swelling laterally to where the incision was performed at the upper aspect. This is a more lateral towards the posterior aspect of the axilla. It is indurated and warm and tender. There is few drops of morris colored drainage via the incision at the more anterior aspect where the incision was performed. The rest of the extremities have no clubbing, cyanosis or edema. Falling. NEUROLOGIC: Nonfocal. SKIN: No rash. PSYCHIATRIC: Calm and cooperative. LABORATORY DATA WBC 10.9, platelets 180, 72% neutrophils, hemoglobin 11.6, creatinine 1.24, BUN and correction creatinine 1.24, estimated GFR 46, blood cultures no growth on admission. IMPRESSION Left axilla abscess due to MRSA. The patient appears to have residual abscess at the lateral aspect of the axilla. She still has some degree of induration located at the lateral aspect which may need to be lanced. RECOMMENDATIONS 1. Continue the IV Linezolid and monitor the axilla for another 24 hours. 2. Discontinue piperacillin / tazobactam 3. Monitor the platelet count while the patient is on linezolid. 4. She may require additional incision of the area laterally which has induration if there is no further improvement on the linezolid. If she does show improvement on linezolid can be switched to p.o. for discharge. If not we may need to use daptomycin instead. Thank you for consultation. Further recommendations will be given for the antibiotic choice upon follow up evaluation. Amita Pinedo MD FD/martell /1:04 PM /4:18 PM BOOKER
[2016-12-12 20:00] VITALS: BP 131/77; PULSE 98; RESP 20; TEMP 96.6; O2SAT 96
[2016-12-12] MEDS: VERAPAMIL HCL 80 MG TAB PO SCH (21:59)
[2016-12-12 22:17] VITALS: O2SAT 96
[2016-12-13] VITALS (8 sets, daily range): BP systolic 107–136; BP diastolic 59–87; PULSE 76–85; RESP 16–18; TEMP 96.2–97.6; O2SAT 95–100
[2016-12-13] MEDS: LINEZOLID 600 MG PREMIX 300 ML IV SCH ×2 (02:56→14:09)
[2016-12-13] MEDS: HYDROmorphone HCL PF 1 MG/ML VIAL IV PUSH PRN ×3 (03:18→21:50)
[2016-12-13 06:04] LABS: HEMATOCRIT 32.7 % (35.0-46.0); MEAN CELL VOLUME 89.9 FL (80.0-100.0); MEAN CORPUSCULAR HEMOGLOBIN 29.8 PG (27.0-34.0); MEAN CORPUSCULAR HGB CONC 33.1 % (32.0-36.0); PLATELET COUNT 238 TH/MM3 (150-450); RED BLOOD COUNT 3.63 MIL/MM3 (4.00-5.30); RED CELL DISTRIBUTION WIDTH 13.5 % (11.6-17.2); REVIEW FLAG FINAL; WHITE BLOOD COUNT 6.5 TH/MM3 (4.0-11.0)
[2016-12-13] MEDS: PRAVASTATIN SOD 40 MG TAB PO SCH (10:05)
[2016-12-13] MEDS: carBAMazepine 200 MG TAB PO SCH ×2 (10:05→21:49)
[2016-12-13] MEDS: PANTOPRAZOLE SOD 20 MG DELAYED RELEASE TAB PO SCH (10:05)
[2016-12-13] MEDS: VERAPAMIL HCL 40 MG TAB PO SCH (10:08)
[2016-12-13] MEDS: ONDANSETRON HCL 4 MG/2 ML VIAL IV PUSH PRN ×2 (14:14→21:50)
--- NOTE | 2016-12-13 15:28 | HHI.IDPN ---
Note Infectious Disease Note Patient feels better. Still has some diarrhea. No chills, Afebrile. Post I&D left axilla. Has vaginal itching. PAST MEDICAL HISTORY: 1. Past medical history asthma 2. seizure disorder 3. multiple sclerosis. 4. also had arthritis. 5. History of thoracotomy in 2004. ALLERGIES SULFA ASPIRIN CODEINE Current Medications Medications (Trade) Dose Ordered Sig/Negrita Route PRN Reason Start Time Stop Time Status Last Admin Dose Admin Ondansetron HCl (Zofran Inj) 4 mg Q4HR PRN IV PUSH n/v 12/08/16 14:30 12/13/16 14:14 Carbamazepine (TEGretol) 200 mg BID PO 12/08/16 21:00 12/13/16 10:05 Pantoprazole Sodium (Protonix) 20 mg DAILY PO 12/09/16 09:00 12/13/16 10:05 Pravastatin Sodium (Pravachol) 40 mg DAILY PO 12/09/16 09:00 12/13/16 10:05 Verapamil HCl (Isoptin) 40 mg DAILY PO 12/10/16 09:00 12/13/16 10:08 Verapamil HCl (Isoptin) 80 mg HS PO 12/09/16 21:00 12/12/16 21:59 Acetaminophen (Tylenol) 650 mg Q4H PRN PO pain over 3 12/09/16 17:45 12/10/16 10:37 Hydromorphone HCl (Dilaudid Pf Inj) 1 mg Q3H PRN IV PUSH pain over 4 12/10/16 12:15 12/13/16 14:13 Promethazine HCl (Phenergan) 25 mg Q4H PRN PO n/v 12/10/16 12:15 12/10/16 21:50 Promethazine HCl 25 mg 25 mg Q4H PRN IM NAUSEA/VOMITING 12/10/16 20:00 Linezolid (Zyvox 600 Mg Premix) 300 ml @ 300 mls/hr Q12H IV 12/11/16 14:00 12/13/16 14:09 Miscellaneous Information ALL NURSING DEPARTME... UNSCH PRN XX SEE LABEL COMMENTS 12/12/16 16:15 12/13/16 16:14 SOCIAL HISTORY No tobacco, no alcohol. No illicit drugs. FAMILY HISTORY Noncontributory. REVIEW OF SYSTEMS Significant for tiredness, left axilla pain and diarrhea. OBJ: Vital Signs Date Time Temp Pulse Resp B/P Pulse Ox O2 Delivery O2 Flow Rate FiO2 12/13/16 14:52 20 12/13/16 12:00 96.2 83 17 124/64 99 12/13/16 09:50 98 21 12/13/16 08:00 96.8 76 16 136/87 99 12/13/16 04:00 97.0 81 18 112/68 95 12/13/16 00:00 97.1 82 18 110/64 95 12/12/16 22:17 96 Nasal Cannula 2.00 12/12/16 20:00 96.6 98 20 131/77 96 12/12/16 19:00 80 16 115/72 97 Nasal Cannula 2 12/12/16 18:00 82 16 113/69 97 Nasal Cannula 2 12/12/16 17:00 80 16 116/69 98 Nasal Cannula 2 12/12/16 16:45 80 16 115/71 99 Nasal Cannula 2 12/12/16 16:30 78 16 117/68 99 Nasal Cannula 2 12/12/16 16:15 80 16 115/69 99 Nasal Cannula 2 12/12/16 16:00 82 16 111/67 99 Nasal Cannula 2 12/12/16 15:50 98.1 94 16 118/72 99 Nasal Cannula 2 12/12/16 12/12/16 12/13/16 15:00 23:00 07:00 Intake Total 150 ml 300 ml Output Total 210 ml Balance 150 ml 90 ml IV Total 150 ml 300 ml Output Urine Total 210 ml # Voids 2 Laboratory Tests Test 12/13/16 05:37 White Blood Count 6.5 TH/MM3 Red Blood Count 3.63 MIL/MM3 Hemoglobin 10.8 GM/DL Hematocrit 32.7 % Mean Corpuscular Volume 89.9 FL Mean Corpuscular Hemoglobin 29.8 PG Mean Corpuscular Hemoglobin 33.1 % Concent Red Cell Distribution Width 13.5 % Platelet Count 238 TH/MM3 Mean Platelet Volume 7.7 FL Laboratory Tests Test 12/13/16 05:37 Creatinine 0.90 MG/DL Estimat Glomerular Filtration 67 ML/MIN Rate PHYSICAL EXAMINATION GENERAL: No acute distress. HEAD, EYES, EARS, NOSE, AND THROAT: Head is atraumatic. Extraocular movements grossly intact, pupils reactive to light. No icterus. Oropharynx no visible lesions. NECK: Supple. No adenopathy. No swelling. LUNGS: Clear breath sounds. HEART: Regular S1, S2, without murmurs, rubs or gallops. ABDOMEN: Bowel sounds present, soft, nontender. LYMPHATICS: no adenopathy. EXTREMITIES: The left axilla has less erythema and swelling. NEUROLOGIC: Nonfocal. SKIN: No rash. PSYCHIATRIC: Calm and cooperative. IMPRESSION Left axilla abscess due to MRSA. Post I&D. Vaginal itch likely candidal infection 2nd to antibiotics. RECOMMENDATIONS: Change to PO 600mg bid linezolid tomorrow x 5 more days. Treatment for vaginal yeast. Will defer to primary. Winston Pinedo MD Dec 13, 2016 15:27
--- NOTE | 2016-12-13 16:44 | HHI.PR ---
Subjective Remarks 2 episodes of diarrhea today. Objective Vitals Vital Signs Date Time Temp Pulse Resp B/P Pulse Ox O2 Delivery O2 Flow Rate FiO2 12/13/16 14:52 20 12/13/16 12:00 96.2 83 17 124/64 99 12/13/16 09:50 98 21 12/13/16 08:00 96.8 76 16 136/87 99 12/13/16 04:00 97.0 81 18 112/68 95 12/13/16 00:00 97.1 82 18 110/64 95 12/12/16 22:17 96 Nasal Cannula 2.00 12/12/16 20:00 96.6 98 20 131/77 96 12/12/16 19:00 80 16 115/72 97 Nasal Cannula 2 12/12/16 18:00 82 16 113/69 97 Nasal Cannula 2 12/12/16 17:00 80 16 116/69 98 Nasal Cannula 2 12/12/16 16:45 80 16 115/71 99 Nasal Cannula 2 12/12/16 12/12/16 12/13/16 15:00 23:00 07:00 Intake Total 150 ml 300 ml Output Total 210 ml Balance 150 ml 90 ml IV Total 150 ml 300 ml Output Urine Total 210 ml # Voids 2 Result Diagram: 12/13/16 0537 12/13/16 0537 Imaging Last Impressions Chest X-Ray 12/08/16 0823 Signed Impressions: Service Date/Time: Thursday, December 08, 2016 08:39 - CONCLUSION: No acute disease. Mylene Muir MD Soft Tissue Ultrasound 12/08/16 0000 Signed Impressions: Service Date/Time: Thursday, December 08, 2016 16:50 - CONCLUSION: Small complex collection beneath the incision measuring 1.8 x 0.9 x 1.3 cm which is nonspecific. Gonsalo Dye MD Objective Remarks GENERAL: This is a well-nourished, well-developed patient, in no apparent distress. CARDIOVASCULAR: Regular rate and rhythm without murmurs, gallops, or rubs. RESPIRATORY: Clear to auscultation. Breath sounds equal bilaterally. No wheezes , rales, or rhonchi. GASTROINTESTINAL: Abdomen soft, non-tender, nondistended. Normal active bowel sounds MUSCULOSKELETAL: Extremities without clubbing, cyanosis, or edema. NEURO: Alert & Oriented x4 to person, place, time, situation. Moves all ext x4 skin: erythema and induration at pt's right axilla purulent fluid expressed from small surgical wound at pt's left axilla A/P Problem List: (1) Abscess of left axilla Status: Acute Plan: - comgmt with General Surgery - Left axillary abscess s/p I/D 12/07 by pcp; now with progressive cellulitis. - mrsa growing from 12/08/15 culture - u/s (12/08/16) suggested some residual pocket of fluid beneath - zosyn/zyvox - Pt underwent I&D with Dr. Paula, 12/13/18 - zosyn x 5d, per Dr. Alejo - start gyne lotrimin for vaginal yeast infection - 2 episodes of diarrhea today - obtain stool studies - anticipate discharge to home 12/14/16 (2) Cellulitis Status: Acute Plan: see above (3) Multiple sclerosis Status: Chronic Plan: no treatment x 1 month. (4) GERD (gastroesophageal reflux disease) Status: Chronic (5) Migraine Status: Acute Plan: takes maxalt prn and verapamil resume verapamil. Evans Acevedo DO Dec 13, 2016 16:44
[2016-12-13] MEDS ORDERED: CLOTRIMAZOLE 1% VAG CREAM 45 GM TUBE VAGINAL SCH (21:00)
[2016-12-13] MEDS: VERAPAMIL HCL 80 MG TAB PO SCH (21:49)
--- NOTE | 2016-12-13 22:39 | HHI.PR ---
Subjective Subjective Notes comfortable Objective Vitals/I&O Vital Signs Date Time Temp Pulse Resp B/P Pulse Ox O2 Delivery O2 Flow Rate FiO2 12/13/16 20:00 97.6 85 18 119/72 98 12/13/16 18:09 21 12/12/16 22:17 Nasal Cannula 2.00 Labs Laboratory Tests Test 12/13/16 05:37 White Blood Count 6.5 Red Blood Count 3.63 Hemoglobin 10.8 Hematocrit 32.7 Mean Corpuscular Volume 89.9 Mean Corpuscular Hemoglobin 29.8 Mean Corpuscular Hemoglobin 33.1 Concent Red Cell Distribution Width 13.5 Platelet Count 238 Mean Platelet Volume 7.7 Creatinine 0.90 Estimat Glomerular Filtration 67 Rate Date/Time Procedure Status Source Growth 12/13/16 20:20 Cyclospora Exam Received Stool Stool Pending 12/13/16 20:20 Cryptosporidium Exam Received Stool Stool Pending 12/13/16 20:20 Stool Pus (ANUJ) Received Stool Stool Pending 12/13/16 20:20 Giardia Antigen (ANUJ) Received Stool Stool Pending 12/13/16 20:20 Stool Occult Blood (ANUJ) Received Stool Stool Pending 12/13/16 20:20 Received Stool Stool Pending Narrative Exam axilla mod drainage less erythema A/P Assessment and Plan POD #1 S/P I&D axilla abscess doing well change packing QD change outer 4x4 as necessary Randell Sevilla MD Dec 13, 2016 22:39
[2016-12-13 23:29] LABS: C. DIFF EPI 027 PRESUMPTIVE NEGATIVE (NEGATIVE); C. DIFF TOXIN PCR NEGATIVE (NEGATIVE)
[2016-12-14] VITALS: BP 134/82; PULSE 76; RESP 18; TEMP 98.6; O2SAT 94
[2016-12-14] MEDS: LINEZOLID 600 MG PREMIX 300 ML IV SCH ×2 (02:33→14:29)
[2016-12-14] MEDS: HYDROmorphone HCL PF 1 MG/ML VIAL IV PUSH PRN ×2 (05:39→11:28)
[2016-12-14] MEDS: ONDANSETRON HCL 4 MG/2 ML VIAL IV PUSH PRN ×2 (05:39→11:27)
--- NOTE | 2016-12-14 07:52 | HHI.PR ---
Subjective Subjective Notes pt without complaint Objective Vitals/I&O Vital Signs Date Time Temp Pulse Resp B/P Pulse Ox O2 Delivery O2 Flow Rate FiO2 12/14/16 00:00 98.6 76 18 134/82 94 12/13/16 18:09 21 12/12/16 22:17 Nasal Cannula 2.00 Labs Laboratory Tests Test 12/13/16 20:20 Stool C. difficile Toxin (PCR) NEGATIVE Stl C. difficile Toxin PRESUMPTIVE Epiderm 027 NEGATIVE Date/Time Procedure Status Source Growth 12/13/16 20:20 Stool Pus (ANUJ) Resulted Stool Stool Pending 12/13/16 20:20 Stool Occult Blood (ANUJ) - Final Resulted Stool Stool HEMOCCULT POSITIVE 12/13/16 20:20 Cancelled Stool Stool Narrative Exam axilla mod drainage decrease induration A/P Assessment and Plan POD #2 S/P I&D axilla abscess doing well change packing QD change outer 4x4 as necessary can d/c with local wound care when ok with primary team Randell Sevilla MD Dec 14, 2016 07:52
[2016-12-14 08:40] VITALS: O2SAT 98
[2016-12-14] MEDS: carBAMazepine 200 MG TAB PO SCH (08:59)
[2016-12-14] MEDS: VERAPAMIL HCL 40 MG TAB PO SCH (08:59)
[2016-12-14] MEDS: PANTOPRAZOLE SOD 20 MG DELAYED RELEASE TAB PO SCH (08:59)
[2016-12-14] MEDS: PRAVASTATIN SOD 40 MG TAB PO SCH (08:59)
[2016-12-14 09:14] VITALS: BP 128/74; PULSE 83; RESP 16; TEMP 96.1; O2SAT 98
[2016-12-14 14:04] VITALS: BP 131/76; PULSE 79; RESP 17; TEMP 96.8; O2SAT 97
--- NOTE | 2016-12-14 15:07 | HHI.FF ---
Face to Face Verification Diagnosis: (1) Abscess of left axilla (2) Multiple sclerosis (3) GERD (gastroesophageal reflux disease) (4) Cellulitis (5) Migraine Home Health Nursing Order: Wound care and dressing changes Instructions: Change packing QD with 1 inch iodoform to left axilla, change outer 4x4 as necessary I have seen patient Sofía Calhoun on 12/14/16. My clinical findings support the need for the requested home health care services because: Infection w/ risk of complications I certify that my clinical findings support that this patient is homebound because: Post-op weakness Crystal Mckenna Dec 14, 2016 15:07 Evans Acevedo DO Dec 14, 2016 15:31
[2016-12-14] MEDS ORDERED: ZYVO600T PO (15:09)
[2016-12-14] MEDS ORDERED: GYNE3CRE VAGINAL (15:09)
[2016-12-14] MEDS ORDERED: HYDR-3288 PO (15:09)
[2016-12-14 16:46] VITALS: BP 126/80; PULSE 84; RESP 18; TEMP 96.1; O2SAT 98
[2016-12-14 18:01] VITALS: O2SAT 98
--- NOTE | 2016-12-19 17:37 | MP ---
cc: RANDELL SEVILLA M.D. DATE OF SURGERY: 12/12/2016 DATE OF : 1970 PREOPERATIVE DIAGNOSIS Left axillary abscess. POSTOPERATIVE DIAGNOSIS Left axillary abscess. PROCEDURE Incision and drainage of axillary abscess. SURGEON Randell Sevilla ANESTHESIA General LMA. ESTIMATED BLOOD LOSS Scant. FINDINGS Purulent fluid. SPECIMENS None. COMPLICATIONS None. OPERATION The patient was brought to the operating room and placed on the operating table in supine position. General anesthesia was instituted. The left axilla was prepped and draped sterilely. 0.25% Marcaine with epinephrine was used to anesthetize the skin and subcutaneous tissue overlying the area of fluctuance. A horizontal was incision was made and taken through the subcutaneous tissue. Using blunt dissection the tissue was dissected. A pocket of purulent fluid was encountered. This was suctioned out. The wound was irrigated with saline and it was then packed with one-inch iodoform packing. The area was cleaned and a 4x4 dressing was placed. The patient was awakened and taken to the recovery room. MD MANDY Marrero/CHIRAG /10:17 PM /5:31 PM
--- NOTE | 2016-12-22 22:54 | HHI.DS ---
Discharge Summary Admission Date Dec 08, 2016 at 09:48 Discharge Date: Dec 14, 2016 Admitting Diagnosis left axillary abscess, SIRS (1) Abscess of left axilla Diagnosis: Principal (2) Cellulitis Diagnosis: Principal (3) Multiple sclerosis Diagnosis: Secondary (4) GERD (gastroesophageal reflux disease) Diagnosis: Secondary (5) Migraine Diagnosis: Secondary Consultants Dr. Randell Paula, General Surgery Dr. Sheila Alejo, Infectious Disease Brief History Pt is 45 yo dx with MS who developed left axillary abscess this past week. Went to pcp yesterday and had incision and drainage. gauze packed. doxy started. today more nausea and pain. fever and chills. In ED noted to have cellulitis extending from the wound mostly posterior. given vanc in ED. Imaging Last Impressions Chest X-Ray 12/08/16 0823 Signed Impressions: Service Date/Time: Thursday, December 08, 2016 08:39 - CONCLUSION: No acute disease. Mylene Muir MD Soft Tissue Ultrasound 12/08/16 0000 Signed Impressions: Service Date/Time: Thursday, December 08, 2016 16:50 - CONCLUSION: Small complex collection beneath the incision measuring 1.8 x 0.9 x 1.3 cm which is nonspecific. Gonsalo Dye MD PE at Discharge GENERAL: This is a well-nourished, well-developed patient, in no apparent distress. CARDIOVASCULAR: Regular rate and rhythm without murmurs, gallops, or rubs. RESPIRATORY: Clear to auscultation. Breath sounds equal bilaterally. No wheezes , rales, or rhonchi. GASTROINTESTINAL: Abdomen soft, non-tender, nondistended. Normal active bowel sounds MUSCULOSKELETAL: Extremities without clubbing, cyanosis, or edema. NEURO: Alert & Oriented x4 to person, place, time, situation. Moves all ext x4 skin: erythema and induration at pt's right axilla purulent fluid expressed from small surgical wound at pt's left axilla Hospital Course (1) Abscess of left axilla Status: Acute Plan: - comgmt with General Surgery - Left axillary abscess s/p I/D 12/07 by pcp; now with progressive cellulitis. - mrsa growing from 12/08/15 culture - u/s (12/08/16) suggested some residual pocket of fluid beneath - zosyn/zyvox - Pt underwent I&D with Dr. Paula, 12/13/18 - zosyn x 5d, per Dr. Alejo - start gyne lotrimin for vaginal yeast infection - discharge to home - see discharge orders - f/u with Dr. Randell Paula in 1 week. (2) Cellulitis Status: Acute Plan: see above (3) Multiple sclerosis Status: Chronic Plan: no treatment x 1 month. (4) GERD (gastroesophageal reflux disease) Status: Chronic (5) Migraine Status: Acute Plan: takes maxalt prn and verapamil resume verapamil. Pt Condition on Discharge: Stable Discharge Disposition: Discharge Home Discharge Instructions DIET: Follow Instructions for: As Tolerated, No Restrictions Activities you can perform: Regular-No Restrictions Follow up Referrals: PCP Follow-up - 12/21/16 with Francis Samuel PhD MD [facility]/ with [facility] - 1 Week with Randell Sevilla MD New Medications: Clotrimazole Vaginal (Gyne-Lotrimin 3 Vaginal) 2% Cream 1 APPL VAGINAL HS Fungal Infection #3 Ref 0 GM Hydrocodone-Acetaminophen ([place]) 7.5-325 mg Tab 1 TAB PO Q6H PRN PAIN #15 Ref 0 TAB Linezolid (Zyvox) 600 Mg Tab 600 MG PO Q12H Infection #8 Ref 0 TAB Continued Medications: Carbamazepine (Tegretol) 200 Mg Tab 200 MG PO BID #60 Ref 0 TAB Omeprazole (Omeprazole) 20 Mg Tab 20 MG PO DAILY #30 Ref 0 TAB Simvastatin (Zocor) 20 Mg Tab 20 MG PO DAILY Cholesterol Management #30 Ref 0 TAB Verapamil (Verapamil) 40 Mg Tab 40 MG PO BID #60 Ref 0 TAB Discontinued Medications: Doxycycline (Doxycycline) 40 Mg Cap 40 MG PO DAILY Infection Ref 0 Evans Saunders DO Dec 22, 2016 22:54
== END 2016-12-14 18:05 | disposition home health service (06) | DRG 603 ==
LOC: NEPC 07:56 → OBSVTOIN 09:48 → NEDA 09:48 → NEPFCDU 12:54 → N07B 12-12 17:15 → N07A 12-12 19:40
PROVIDERS: ADMIT Hospitalist; ATTEND Hospitalist
PROC: 0H9CXZZ Drainage of Left Upper Arm Skin, External Approach (ICD-10-PCS; principal; 2016-12-12 15:07)
DX: L03.112 Cellulitis of left axilla (principal); R65.10 Systemic inflammatory response syndrome (SIRS) of non-infectious origin without acute organ dysfunction; G35 Multiple sclerosis; B37.3 Candidiasis of vulva and vagina; G40.909 Epilepsy, unspecified, not intractable, without status epilepticus; E78.5 Hyperlipidemia, unspecified; L02.412 Cutaneous abscess of left axilla; B95.62 Methicillin resistant Staphylococcus aureus infection as the cause of diseases classified elsewhere; R19.7 Diarrhea, unspecified; K21.9 Gastro-esophageal reflux disease without esophagitis; G43.909 Migraine, unspecified, not intractable, without status migrainosus; J45.909 Unspecified asthma, uncomplicated; R07.9 Chest pain, unspecified; M19.90 Unspecified osteoarthritis, unspecified site
CPT/HCPCS: 71010; 76999; 80048; 80053; 82272; 82565; 83605; 85025; 85027; 86403; 87040; 87070; 87147; 87186; 87205; 87207; 87328; 87329; 87493; 87506; 87804; 93005; 96365; 96375; J0878; J1100; J1170; J1580; J2020; J2250; J2270; J2405; J2543; J2550; J3010; J3370; J7030; J7040; J7050; Q0169

== ENCOUNTER 2017-06-06 10:51 | Inpatient (IN) | payer OTHER ==
[~2017-06-06] VITALS: Ht 160 cm; Wt 106.0 kg
[~2017-06-06 10:51] MED LIST changes: -ALBU17I INH; -ALLE30TA3 PO; -CARB200T16 PO; -FIORTAB4 PO; -FLUTI220I INH; +GYNE3CRE VAGINAL; +HYDR-3288 PO; -OMEP20CA5 PO; +OMEP20TA PO; +TEGR200T PO; -TOPI25 PO; +VERA40TA PO; +ZOCO20TA PO; +ZYVO600T PO
[2017-06-25] MEDS ORDERED: POVIDONE IODINE 5% (ANTISEPSIS KIT) 4 APPLICATIONS EACH NARE PRN (06:00)
[2017-06-25] MEDS ORDERED: APREPITANT 40 MG CAP PO SCH (06:00)
[2017-06-25] MEDS ORDERED: SODIUM CHLORID 0.9% 500 ML IV PRN (06:00)
[2017-06-25] MEDS ORDERED: METOPROLOL TARTRATE 25 MG TAB PO PRN (06:00)
[2017-06-25] MEDS ORDERED: CHLORHEXIDINE GLUCONATE 2 % 1 PACK (2 CLOTHS) TOPICAL PRN (06:00)
[2017-06-25] MEDS ORDERED: SCOPOLAMINE 1.5 MG PATCH T-DERMAL SCH (06:00)
[2017-06-25] MEDS ORDERED: INSULIN HUMAN REGULAR 1,000 UNITS/10 ML VIAL SQ PRN (06:00)
[2017-06-25] MEDS ORDERED: ACETAMINOPHEN 1000 MG/100 ML VIAL IV SCH (06:00)
[2017-06-25] MEDS ORDERED: LACTATED RINGER'S 1000 ML IV PRN (06:00)
[2017-06-25] MEDS ORDERED: ONDANSETRON HCL 4 MG/2 ML VIAL IV PUSH SCH (06:00)
[2017-06-25] MEDS ORDERED: ZOLO50TA PO (07:13)
[2017-06-25] MEDS ORDERED: NAPR220C22 PO (07:13)
[2017-06-25] MEDS ORDERED: FLUTI44I INH (07:13)
[2017-06-25] MEDS ORDERED: MAXA10TA2 PO (07:13)
[2017-06-25] MEDS ORDERED: VITA20003 PO (07:13)
[2017-06-25] MEDS ORDERED: CETI-1 PO (07:13)
[2017-06-25] MEDS ORDERED: VENTAER INH (07:13)
[2017-06-25] MEDS ORDERED: DIME240C PO (07:13)
[2017-06-25] MEDS ORDERED: PROV100T10 PO (07:13)
[2017-06-25 07:20] VITALS: BP 127/78; PULSE 78; RESP 20; TEMP 98.1; O2SAT 98
[2017-06-25] MEDS ORDERED: fentaNYL CITRATE 250 MCG/5 ML AMP ONE (11:46)
[2017-06-25] MEDS ORDERED: MIDAZOLAM HCL 2 MG/2 ML VIAL ONE (11:46)
[2017-06-25] MEDS ORDERED: FAMOTIDINE 20 MG/2 ML VIAL ONE (11:47)
[2017-06-25] MEDS ORDERED: HYDROmorphone HCL PF 2 MG/ML VIAL ONE (11:47)
[2017-06-25] MEDS ORDERED: ceFAZolin 2 GM PREMIX 50 ML ONE (11:55)
[2017-06-25] MEDS ORDERED: metroNIDAZOLE 500 MG INJ 100 ML IV ONE (11:55)
[2017-06-25] MEDS ORDERED: BUPIVACAINE/EPINEPHRINE 0.25% 50 ML VIAL ONE (11:56)
[2017-06-25] MEDS ORDERED: PROPOFOL 200 MG/20 ML AMP IV ONE (12:00)
[2017-06-25] MEDS ORDERED: NEOSTIGMINE 3 MG/3 ML SYR IV ONE (12:00)
[2017-06-25] MEDS ORDERED: ONDANSETRON HCL 4 MG/2 ML VIAL IV PUSH ONE (12:00)
[2017-06-25] MEDS ORDERED: LACTATED RINGER'S 1000 ML INJ 1,000 ML IV ONE (12:00)
[2017-06-25] MEDS ORDERED: DO NOT ADM ANY ANTICOAGULANT DRUGS PRN (14:17)
[2017-06-25] MEDS ORDERED: *HYDROmorphone PF 1 MG VIAL PERIprocedural Use ONLY ONE (14:42)
[2017-06-25] MEDS: 1/2 NS + KCL 20 MEQ INJ 1,000 ML IV SCH ×2 (15:23→15:40)
[2017-06-25] MEDS ORDERED: SODIUM CHLORIDE 0.9% FLUSH 10 ML FLUSH PRN (15:30)
[2017-06-25] MEDS ORDERED: diphenhydrAMINE HCL ELIXIR 12.5 MG/5 ML CUP PO PRN (15:30)
[2017-06-25] MEDS ORDERED: ACETAMINOPHEN 325MG/HYDROcodone 7.5MG/15ML UDC PO PRN ×2 (15:30)
[2017-06-25] MEDS ORDERED: Post-op Orders (for Pharmacy) MISC OTHER ONE (15:30)
[2017-06-25] MEDS ORDERED: ENALAPRILAT 1.25 MG/ML VIAL IV PUSH PRN (15:30)
[2017-06-25] MEDS ORDERED: diphenhydrAMINE HCL 50 MG/ML VIAL IV PRN (15:30)
[2017-06-25] MEDS: RESP: ALBUTEROL 2.5 MG/3 ML NEB (SCH) INH ×3 (15:43→23:39)
[2017-06-25] MEDS: METOCLOPRAMIDE HCL 10 MG/2 ML VIAL IV PUSH SCH ×2 (15:47→20:42)
[2017-06-25 17:38] VITALS: O2SAT 94
[2017-06-25] MEDS: ONDANSETRON HCL 4 MG/2 ML VIAL IV PRN ×2 (17:52→23:17)
[2017-06-25] MEDS ORDERED: ENOXAPARIN SODIUM 40 MG/0.4 ML SYRINGE SQ SCH (18:00)
[2017-06-25 20:00] VITALS: BP 131/70; PULSE 99; RESP 20; TEMP 96; O2SAT 95
[2017-06-25 20:12] VITALS: O2SAT 98
[2017-06-25] MEDS: SODIUM CHLORIDE 0.9% FLUSH 10 ML FLUSH IV FLUSH SCH (20:55)
[2017-06-25] MEDS: metroNIDAZOLE 500 MG INJ 100 ML IV SCH (21:57)
[2017-06-26] VITALS: BP 135/80; PULSE 92; RESP 20; TEMP 97.5; O2SAT 96
[2017-06-26] MEDS: 1/2 NS + KCL 20 MEQ INJ 1,000 ML IV SCH ×4 (01:18→13:53)
[2017-06-26] MEDS: METOCLOPRAMIDE HCL 10 MG/2 ML VIAL IV PUSH SCH ×2 (03:23→09:02)
[2017-06-26] MEDS: RESP: ALBUTEROL 2.5 MG/3 ML NEB (SCH) INH ×4 (03:38→16:00)
[2017-06-26 04:00] VITALS: BP 132/60; PULSE 108; RESP 20; TEMP 98.8; O2SAT 95
[2017-06-26] MEDS: ONDANSETRON HCL 4 MG/2 ML VIAL IV PRN ×3 (04:43→16:16)
[2017-06-26] MEDS: metroNIDAZOLE 500 MG INJ 100 ML IV SCH ×2 (04:44→13:19)
[2017-06-26 05:56] LABS: BASOPHIL % 0.2 % (0.0-2.0); HEMATOCRIT 35.7 % (35.0-46.0); HEMO FLAGS DIFF FINAL; LYMPH % 13.9 % (9.0-44.0); LYMPHOCYTE # 0.7 TH/MM3 (1.0-4.8); MEAN CELL VOLUME 90.5 FL (80.0-100.0); MEAN CORPUSCULAR HEMOGLOBIN 30.3 PG (27.0-34.0); MEAN CORPUSCULAR HGB CONC 33.5 % (32.0-36.0); MONO % 9.4 % (0.0-8.0); NEUT % 76.5 % (16.0-70.0); PLATELET COUNT 187 TH/MM3 (150-450); RED BLOOD COUNT 3.95 MIL/MM3 (4.00-5.30); RED CELL DISTRIBUTION WIDTH 13.6 % (11.6-17.2); WHITE BLOOD COUNT 5.3 TH/MM3 (4.0-11.0)
[2017-06-26 06:10] LABS: BICARBONATE 25.1 MEQ/L (21.0-32.0); MAGNESIUM 1.8 MG/DL (1.5-2.5); POTASSIUM 3.9 MEQ/L (3.5-5.1)
[2017-06-26] MEDS: SODIUM CHLORIDE 0.9% FLUSH 10 ML FLUSH IV FLUSH SCH (07:52)
[2017-06-26 08:00] VITALS: BP 125/66; PULSE 105; RESP 18; TEMP 97.9; O2SAT 95
[2017-06-26] MEDS ORDERED: PANTOPRAZOLE SOD 40 MG DELAYED RELEASE TAB PO SCH (09:00)
[2017-06-26] MEDS ORDERED: carBAMazepine 200 MG TAB PO SCH (09:30)
--- NOTE | 2017-06-26 09:38 | HHI.PR ---
Subjective Subjective Notes 46yo female POD# VSG. Laying in bed, c/o nausea and indigestion. Having a hard time getting down PO fluids. Objective Vitals/I&O Vital Signs Date Time Temp Pulse Resp B/P Pulse Ox O2 Delivery O2 Flow Rate FiO2 06/26/17 08:00 97.9 105 18 125/66 95 06/25/17 17:38 Nasal Cannula 1.00 Labs Laboratory Tests Test 06/26/17 05:03 White Blood Count 5.3 Red Blood Count 3.95 Hemoglobin 12.0 Hematocrit 35.7 Mean Corpuscular Volume 90.5 Mean Corpuscular Hemoglobin 30.3 Mean Corpuscular Hemoglobin 33.5 Concent Red Cell Distribution Width 13.6 Platelet Count 187 Mean Platelet Volume 8.1 Neutrophils (%) (Auto) 76.5 Lymphocytes (%) (Auto) 13.9 Monocytes (%) (Auto) 9.4 Eosinophils (%) (Auto) 0.0 Basophils (%) (Auto) 0.2 Neutrophils # (Auto) 4.0 Lymphocytes # (Auto) 0.7 Monocytes # (Auto) 0.5 Eosinophils # (Auto) 0.0 Basophils # (Auto) 0.0 CBC Comment DIFF FINAL Differential Comment Sodium Level 138 Potassium Level 3.9 Chloride Level 104 Carbon Dioxide Level 25.1 Anion Gap 9 Blood Urea Nitrogen 7 Creatinine 0.71 Estimat Glomerular Filtration 88 Rate Random Glucose 118 Calcium Level 8.2 Magnesium Level 1.8 Cardiovascular: Regular Lungs: Clear Abdomen: Post-op tenderness Extremities: Perfused Wound Wound : Wound Location: Abdomen Appearance: Clean & Dry A/P Assessment and Plan Add Levsin and Phenergan Continue with frequent ambulation Continue to increase PO fluids as tolerated. Reminded to take small, slow sips Discharge Planning D/C home either later this evening or tomorrow Alcides Wilson Jun 26, 2017 09:38
[2017-06-26] MEDS ORDERED: PROMETHAZINE HCL SYRUP 6.25 MG/5 ML CUP PO PRN (09:45)
[2017-06-26] MEDS ORDERED: SERTRALINE HCL 50 MG TAB PO SCH (09:45)
[2017-06-26] MEDS ORDERED: HYOSCYAMINE SOLN 0.125 MG/ML 15 ML BTL PO PRN (09:45)
[2017-06-26] MEDS ORDERED: VERAPAMIL HCL 40 MG TAB PO SCH (10:00)
[2017-06-26] MEDS ORDERED: PILL SPLITTER OTHER PRN (10:00)
[2017-06-26] MEDS ORDERED: MODAFINIL 200 MG TAB PO PRN (10:00)
[2017-06-26] MEDS ORDERED: DIMETHYL FUMARATE 240 MG PO SCH (10:00)
[2017-06-26 12:00] VITALS: BP 138/87; PULSE 93; RESP 17; TEMP 98.4; O2SAT 98
[2017-06-26] MEDS ORDERED: HYOS0.1231 PO (14:56)
[2017-06-26] MEDS ORDERED: PROM25TA10 PO (14:56)
[2017-06-26] MEDS ORDERED: METOCLOPRAMIDE HCL 10 MG/2 ML VIAL IV PUSH PRN (15:30)
--- NOTE | 2017-07-09 13:13 | MP ---
cc: RANDELL SEVILLA DATE OF SURGERY: 06/25/2017 DATE OF : 1970 PREOPERATIVE DIAGNOSIS Morbid obesity with a BMI of 40 complicated by essential hypertension and hyperlipidemia. POSTOPERATIVE DIAGNOSIS Morbid obesity with a BMI of 40 complicated by essential hypertension and hyperlipidemia. PROCEDURE Laparoscopic vertical sleeve gastrectomy over a 36-[place] ViSiGi. SURGEON Randell Sevilla ANESTHESIA General endotracheal anesthesia. ESTIMATED BLOOD LOSS Scant. FINDINGS Fatty liver. SPECIMEN None. COMPLICATIONS None. DETAILS OF PROCEDURE The patient was brought to the operating room and placed on the operating table in the supine position. Bilateral sequential inflation devices were placed on the lower extremities. General anesthesia was instituted. Antibiotics were initiated. The abdomen was prepped and draped sterilely. A point 15 cm distal to the xiphoid in the midline was anesthetized with 0.25% Marcaine with epinephrine. A skin incision was made. A 5 mm OptiView port was placed under direct vision and a pneumoperitoneum created. Under direct vision three 5 mm left upper quadrant, one 15 mm right upper quadrant and one 5 mm right upper quadrant ports were placed. Prior to placement of all ports the skin and peritoneum were anesthetized with 0.25% Marcaine with epinephrine. The patient was placed in reverse Trendelenburg position left side up. A Kassie-Flex retractor was placed. The left lobe of the liver was retracted. The vasculature along the greater curvature of the stomach was using a Harmonic scalpel starting a distance 5 cm proximal to the pylorus and carried towards the angle of His. The angle of His was taken down bluntly. Posterior ligamentous attachments were sharply . A 36-[place] ViSiGi bougie was placed at the start of the case and placed on suction. Division of the stomach started 5 cm proximal to the pylorus and carried towards the angle of His to completely excise approximately 80% of the stomach. This was performed using an Kieler Flex stapler at the pylorus. The first firing was with a black load, followed by a green load and four gold loads. All staple loads were reinforced with SeamGuard. A distance of 2 cm was left from the angle incisura and the staple line and a distance of 1 cm left from the GE junction and the staple line. The pylorus was then occluded, methylene blue tinged saline was instilled. There was no evidence of extravasation. The gastrocolic ligament was then sutured to the posterior leaflet of the SeamGuard using 2-0 Vicryl suture in a running manner. Bleeding points were controlled with Evicel. The excised stomach was removed from the peritoneal cavity through the 15 mm port site in an Endopouch. The fascia at the 15 mm port site was approximated with 0 Vicryl suture. The CO2 was then released. All ports were removed. All skin incisions were closed with 4-0 Monocryl. The abdominal wall was cleaned and a sterile dressing placed. The patient was awakened and taken to the recovery room. MD MANDY Marrero/BT /12:13 PM /1:06 PM
== END 2017-06-26 16:58 | disposition home or self-care (01) | DRG 621 ==
LOC: HSDI 06-25 05:24 → N07A 06-25 16:09 → N07B 06-25 20:07
PROVIDERS: ADMIT Surgery; ATTEND Surgery
PROC: 0DB64Z3 Excision of Stomach, Percutaneous Endoscopic Approach, Vertical (ICD-10-PCS; principal; 2017-06-25 12:00)
DX: E66.01 Morbid (severe) obesity due to excess calories (principal); G35 Multiple sclerosis; K76.0 Fatty (change of) liver, not elsewhere classified; Z68.41 Body mass index [BMI] 40.0-44.9, adult; I10 Essential (primary) hypertension; G43.909 Migraine, unspecified, not intractable, without status migrainosus; J45.909 Unspecified asthma, uncomplicated; K21.9 Gastro-esophageal reflux disease without esophagitis; E78.5 Hyperlipidemia, unspecified; R11.0 Nausea; K30 Functional dyspepsia
CPT/HCPCS: 80048; 83735; 85025; 94150; 94640; 94664; J0690; J1170; J1650; J2250; J2405; J2710; J2765; J3010; J7120; J7613; J8501

== ENCOUNTER 2018-01-07 16:39 | Inpatient (IN) | payer OTHER ==
[~2018-01-07] VITALS: Ht 165.1 cm; Wt 83.0 kg
[2018-01-07] VITALS (13 sets, daily range): BP systolic 68–154; BP diastolic 32–72; PULSE 132–146; RESP 27–33; TEMP 98.8–99.1; O2SAT 73–100
[~2018-01-07 16:39] MED LIST changes: +CETI-1 PO; +DIME240C PO; +FLUTI44I INH; -GYNE3CRE VAGINAL; -HYDR-3288 PO; +HYOS0.1231 PO; +MAXA10TA2 PO; +MODA2TAB PO; -OMEP20TA PO; +PROM25TA10 PO; +VENTAER INH; +ZOLO50TA PO; -ZYVO600T PO
[2018-01-07] MEDS ORDERED: SODIUM CHLOR 0.9% 1000 ML INJ 800 ML IV ONE (16:47)
[2018-01-07] MEDS ORDERED: SODIUM CHLOR 0.9% 1000 ML INJ 1,000 ML IV ONE ×3 (16:47→19:15)
[2018-01-07] MEDS ORDERED: methylPREDNISolone SOD SUCC 125 MG/2 ML VIAL IV PUSH ONE (17:00)
[2018-01-07] MEDS: RESP: ALBUTEROL 2.5 MG/IPRATROPIUM 0.5 MG NEB (SCH) INH ×2 (17:03→21:04)
[2018-01-07 17:22] LABS: CHLORIDE 97 MEQ/L (98-107); SODIUM (NA) 129 MEQ/L (136-145)
[2018-01-07 17:26] LABS: ALBUMIN 3.3 GM/DL (3.4-5.0); BLOOD UREA NITROGEN 21 MG/DL (7-18); CALCIUM 8.3 MG/DL (8.5-10.1); GLUCOSE,RANDOM 185 MG/DL (74-106); INTERNATIONAL NORMALIZED RATIO 1.2 RATIO
[2018-01-07 17:29] LABS: ALT (GPT) 58 U/L (10-53); AST (GOT) 90 U/L (15-37)
[2018-01-07 17:30] LABS: GLOMERULAR FILTRATION RATE 24 ML/MIN (>89)
[2018-01-07] MEDS ORDERED: ETOMIDATE 20 MG/10 ML VIAL IV PUSH ONE (17:30)
[2018-01-07] MEDS ORDERED: cefTRIAXone INJ 1,000 MG in SODIUM CHLORIDE 0.9% INJ 100 ML IV ONE (17:30)
[2018-01-07] MEDS ORDERED: AZITHROMYCIN INJ 500 MG in SODIUM CHLOR 0.9% 250 ML INJ 250 ML IV ONE (17:30)
[2018-01-07] MEDS ORDERED: ETOMIDATE 20 MG/10 ML VIAL ONE (17:30)
[2018-01-07] MEDS ORDERED: ROCURONIUM INJ 50 MG/5 ML VIAL IV ONE (17:30)
[2018-01-07 17:31] LABS: TOTAL BILIRUBIN ADULT 1.3 MG/DL (0.2-1.0); TOTAL PROTEIN 7.3 GM/DL (6.4-8.2)
[2018-01-07] MEDS ORDERED: ROCURONIUM INJ 50 MG/5 ML VIAL ONE (17:31)
--- NOTE | 2018-01-07 17:31 | RADRPT ---
EXAM DATE/TIME: 01/07/2018 17:15 [place] COMPARISON: CHEST SINGLE AP, December 08, 2016, 8:39. INDICATIONS : Patient extremely short of breath. MEDICAL HISTORY : None. SURGICAL HISTORY : None. ENCOUNTER: Initial ACUITY: 1 week PAIN SCORE: Non-responsive. LOCATION: Bilateral upper chest FINDINGS: A single view of the chest demonstrates interval involvement of bilateral normally perihilar airspace disease. No associated effusions. Heart size is normal. Osseous structures are intact. CONCLUSION: Bilateral predominantly perihilar pneumonic infiltrates. Lincoln Bee MD on January 07, 2018 at 17:28 Board Certified Radiologist. This report was verified electronically.
[2018-01-07 17:32] LABS: ALKALINE PHOSPHATASE 48 U/L (45-117)
[2018-01-07 17:35] LABS: LACTIC ACID SEPSIS PROTOCOL 5.7 mmol/L (0.4-2.0)
[2018-01-07 17:36] LABS: TROPONIN I LESS THAN 0.02 NG/ML (0.02-0.05)
--- NOTE | 2018-01-07 17:54 | PD ---
HPI Chief Complaint: Respiratory Distress Time Seen by Provider: 16:47 Travel History International Travel<30 days: No Contact w/Intl Traveler<30days: No Traveled to known affect area: No History of Present Illness HPI 47-year-old female with history of asthma brought in by her for evaluation of shortness of breath. The patient has had upper respiratory symptoms for the past several days, was seen at [facility] emergency department yesterday evening and was diagnosed with influenza B. Throughout the day today she had worsening shortness of breath. She tried using her albuterol throughout the day today without any improvement. Upon arrival the patient is tachypneic with moderate to severe respiratory distress with bilateral wheezes/ rhonchi with poor air movement bilaterally. Her heart rate is in the 140s, sinus, and she is hypotensive. O2 saturation was in the 70s on room air. She was immediately placed on BiPAP with improvement in O2 saturation to 90%. She was provided 3 DuoNeb treatments and IV Solu-Medrol with only minimal improvement. Patient remained tachypneic. Chest x-ray shows bilateral perihilar infiltrates. I discussed with both the patient and the patient's the option of intubation, and they were both agreeable to this. PFSH Past Medical History Arthritis: Yes Asthma: Yes Autoimmune Disease: No Blood Disorders: No Anxiety: Yes Depression: Yes Heart Rhythm Problems: No Cancer: No Cardiovascular Problems: Yes High Cholesterol: Yes Chemotherapy: No Chest Pain: Yes Congestive Heart Failure: No COPD: No Cerebrovascular Accident: No Diabetes: No Diminished Hearing: No Endocrine: No GERD: Yes Glaucoma: No Genitourinary: No Headaches: Yes Hepatitis: No Hiatal Hernia: No Hypertension: No Immune Disorder: No Kidney Stones: No Musculoskeletal: No Neurologic: Yes (MS) Psychiatric: No Reproductive: No Respiratory: No Migraines: Yes Myocardial Infarction: No Radiation Therapy: No Renal Failure: No Seizures: Yes Sickle Cell Disease: No Sleep Apnea: No Thyroid Disease: No Ulcer: No Menopausal: Yes : 1 Para: 0 : 1 Past Surgical History Abdominal Surgery: No AICD: No Appendectomy: No Arteriovenous Shunt: No Body Medical Devices: none Cardiac Surgery: No Cholecystectomy: No Ear Surgery: No Endocrine Surgery: No Eye Surgery: No Genitourinary Surgery: No Gynecologic Surgery: Yes (HYSTERECTOMY) Hysterectomy: Yes (2007) Insulin Pump: No Joint Replacement: No Oral Surgery: No Pacemaker: No Thoracic Surgery: Yes (THORACOTOMY) Other Surgery: Yes (RT BREAST BIPOSIES X3 -UNKNOWN DATE) Social History Alcohol Use: No Tobacco Use: No Substance Use: No Allergies-Medications (Allergen,Severity, Reaction): Coded Allergies: Sulfa (Sulfonamide Antibiotics) (Unverified Allergy, Severe, rash, 07/10/17 ) aspirin (Unverified Allergy, Severe, nausea, 07/10/17) codeine (Unverified Allergy, Severe, rash, 07/10/17) *MDRO Multi-Drug Resistant Organism (Verified Adverse Reaction, Unknown, MRSA, 06/25/17) MRSA (chest wound) - 12/08/16 Reported Meds & Prescriptions Reported Meds & Active Scripts Active Phenergan (Promethazine HCl) 25 Mg Tablet 25 Mg PO Q6H PRN 10 Days Hyosyne Liq Drops (Hyoscyamine Sulfate) 0.125 Mg/Ml Soln 0.125 Mg PO Q4H PRN Reported Flovent Hfa 10.6 GM Inh (Fluticasone Propionate) 44 Mcg/Act Inh 2 Puff INH BID PRN Use daily at the same time. Ventolin Hfa 18 GM Inh (Albuterol Sulfate) 90 Mcg/Act Aer 2 Puff INH Q4-6H PRN Maxalt (Rizatriptan Benzoate) 10 Mg Tab 1 Cap PO PRN Provigil (Modafinil) 100 Mg Tab 100 Mg PO BID PRN Zyrtec (Cetirizine HCl) 10 Mg Tablet 1 PO DAILY Zoloft (Sertraline HCl) 50 Mg Tab 50 Mg PO DAILY Tecfidera (Dimethyl Fumarate) 240 Mg Cap 240 Mg PO BID Verapamil (Verapamil HCl) 40 Mg Tab 40 Mg PO BID Zocor (Simvastatin) 20 Mg Tab 20 Mg PO DAILY Tegretol (Carbamazepine) 200 Mg Tab 200 Mg PO BID Review of Systems ROS Limitations: Clinical Condition Except as stated in HPI: all other systems reviewed are Neg Physical Exam Narrative GENERAL: Well-developed, well-nourished, severe respiratory distress, tachypnea , accessory muscle use, speaking 1 word at a time. SKIN: Focused skin assessment warm/dry. No rash. No pallor. HEAD: Atraumatic. Normocephalic. EYES: Pupils equal and round. No scleral icterus. No injection or drainage. ENT: No nasal bleeding or discharge. Mucous membranes pink and dry. NECK: Trachea midline. No JVD. CARDIOVASCULAR: Tachycardic, rate 140, regular. RESPIRATORY: Severe respiratory distress, tachypneic, intercostal retractions, accessory muscle use, poor air movement bilaterally with wheezes and coarse breath sounds bilaterally. GASTROINTESTINAL: Abdomen soft, non-tender, nondistended. MUSCULOSKELETAL: No obvious deformities. No clubbing. No cyanosis. No edema. NEUROLOGICAL: Awake and alert. No obvious cranial nerve deficits. Motor grossly within normal limits. Normal speech. PSYCHIATRIC: Appropriate mood and affect; insight and judgment normal. Data Data Last Documented VS Vital Signs Date Time Temp Pulse Resp B/P (MAP) Pulse Ox O2 Delivery O2 Flow Rate FiO2 01/07/18 17:42 93 100 01/07/18 17:00 Non-Rebreather 01/07/18 16:45 99.1 144 32 80/38 (52) Orders Orders Sepsis Workup Initiated (01/07/18 ) Electrocardiogram (01/07/18 16:47) Complete Blood Count With Diff (01/07/18 16:47) Comprehensive Metabolic Panel (01/07/18 16:47) Prothrombin Time / Inr (Pt) (01/07/18 16:47) Act Partial Throm Time (Ptt) (01/07/18 16:47) Lactic Acid Sepsis Protocol (01/07/18 16:47) Ckmb (Isoenzyme) Profile (01/07/18 16:47) Troponin I (01/07/18 16:47) Urinalysis - C+S If Indicated (01/07/18 16:47) Blood Culture (01/07/18 16:47) Chest, Single Ap (01/07/18 16:47) Arterial Blood Gas (Abg) (01/07/18 16:47) Ecg Monitoring (01/07/18 16:47) Iv Access Insert/Monitor (01/07/18 16:47) Oximetry (01/07/18 16:47) Oxygen Administration (01/07/18 16:47) Sodium Chlor 0.9% 1000 Ml Inj (Ns 1000 M (01/07/18 16:47) Sodium Chlor 0.9% 1000 Ml Inj (Ns 1000 M (01/07/18 16:47) Methylprednisolone So Succ Inj (Solumedr (01/07/18 17:00) Albuterol-Ipratropium Neb (Duoneb Neb) (01/07/18 17:00) Resp Bipap / Cpap Non Invas Vt (01/07/18 16:47) Beta Hcg (Quant/Titer) (01/07/18 16:47) Ceftriaxone Inj (Rocephin Inj) (01/07/18 17:30) Azithromycin Inj (Zithromax Inj) (01/07/18 17:30) Etomidate Inj (Amidate Inj) (01/07/18 17:30) Rocuronium Inj (Zemuron Inj) (01/07/18 17:30) Etomidate Inj (Amidate Inj) (01/07/18 17:30) Rocuronium Inj (Zemuron Inj) (01/07/18 17:31) CKMB (01/07/18 16:58) CKMB% (01/07/18 16:58) Chest, Single Ap (01/07/18 ) Sputum Culture And Gram Stain (01/07/18 17:48) Insert Temp Sensing Montoya Cath (01/07/18 17:55) Fentanyl Inj (Fentanyl Inj) (01/07/18 18:15) Midazolam Inj (Versed Inj) (01/07/18 18:15) Midazolam Inj (Versed Inj) (01/07/18 18:14) Arterial Blood Gas (Abg) (01/07/18 ) Midazolam Inj (Versed Inj) (01/07/18 18:45) Admit Order (Ed Use Only) (01/07/18 18:40) Urine Culture (01/07/18 18:12) Labs Laboratory Tests Test 01/07/18 16:58 01/07/18 17:05 01/07/18 18:12 Prothrombin Time 12.0 SEC Prothromb Time International Ratio 1.2 RATIO Activated Partial Thromboplast Time 25.4 SEC Blood Urea Nitrogen 21 MG/DL Creatinine 2.20 MG/DL Random Glucose 185 MG/DL Total Protein 7.3 GM/DL Albumin 3.3 GM/DL Calcium Level 8.3 MG/DL Alkaline Phosphatase 48 U/L Aspartate Amino Transf (AST/SGOT) 90 U/L Alanine Aminotransferase (ALT/SGPT) 58 U/L Total Bilirubin 1.3 MG/DL Sodium Level 129 MEQ/L Potassium Level 3.4 MEQ/L Chloride Level 97 MEQ/L Carbon Dioxide Level 18.0 MEQ/L Anion Gap 14 MEQ/L Estimat Glomerular Filtration Rate 24 ML/MIN Lactic Acid Level 5.7 mmol/L Total Creatine Kinase 255 U/L Creatine Kinase MB 0.7 NG/ML Creatine Kinase MB % 0.3 % Troponin I LESS THAN 0.02 NG/ML Human Chorionic Gonadotropin, Quant LESS THAN 1 MIU/ML Blood Gas Puncture Site RT RADIAL Blood Gas Patient Temperature 98.6 Blood Gas HCO3 18 mmol/L Blood Gas Base Excess -7.8 mmol/L Blood Gas Oxygen Saturation 89 % Arterial Blood pH 7.29 Arterial Blood Partial Pressure CO2 38 mmHG Arterial Blood Partial Pressure O2 70 mmHG Arterial Blood Oxygen Content 18.3 Vol % Arterial Blood Carboxyhemoglobin 1.2 % Arterial Blood Methemoglobin 1.0 % Blood Gas Hemoglobin 14.7 G/DL Oxygen Delivery Device BIPAP Blood Gas Ventilator Setting EPAP 5/IPAP 15 Blood Gas Inspired Oxygen 100 % Urine Color BROWN Urine Turbidity CLOUDY Urine pH 6.0 Urine Specific Center 1.020 Urine Protein 100 mg/dL Urine Glucose (UA) NEG mg/dL Urine Ketones TRACE mg/dL Urine Occult Blood MOD Urine Nitrite NEG Urine Bilirubin MOD Urine Leukocyte Esterase NEG Urine RBC 0-3 /hpf Urine WBC 3-5 /hpf Urine WBC Clumps OCC Urine Squamous Epithelial Cells 0-5 /hpf Urine Amorphous Sediment MOD Urine Bacteria OCC /hpf Urine Mucus FEW /lpf Microscopic Urinalysis Comment CATH-CULTURE IND MDM Medical Decision Making Medical Screen Exam Complete: Yes Emergency Medical Condition: Yes Interpretation(s) EKG: Sinus tachycardia, rate 133, normal axis, normal intervals, nonspecific T- wave abnormality. Differential Diagnosis Sepsis, pneumonia, influenza, PE, pneumothorax, ACS, pulmonary edema Narrative Course See HPI Chest x-ray shows bilateral perihilar interstitial infiltrates/ARDS. Initially the patient was hypotensive with a blood pressure of 80s over 40s. She was provided 3 L of normal saline with improvement in blood pressure to 145/ 44. Shortly afterwards the patient's blood pressure dropped to 80s over 40s again. An emergent right IJ central line was placed, and the patient was started on Levophed. Patient was started on IV Rocephin and IV azithromycin. She reports that she had taken Tamiflu today that was prescribed to her yesterday. Case discussed with traffic administrator Dr. Dennis who will admit the patient to his service. The patient will be transferred to the main hospital ICU/[facility]. Critical Care Narrative Aggregate critical care time was 40 minutes. Time to perform other separately billable procedures was not included in the critical care time. My time did not include minutes spent treating any other patients simultaneously or on activities that did not directly contribute to the patient's treatment. The services I provided to this patient were to treat and/or prevent clinically significant deterioration that could result in: , permanent disability, worsening clinical condition I provided critical care services requiring my management, as noted below: Chart data review, documentation time, medication orders and management, vital sign assessments/reviewing monitor data, ordering and reviewing lab tests, ordering and interpreting/reviewing x-rays and diagnostic studies, care of the patient and discussion of the patient with the admitting physicians. Procedures Procedure Narrative Emergent intubation: The patient was put in optimal position for the procedure. Rapid sequence intubation was initiated by me using 20 milligrams of etomidate IV and 50 milligrams of rocuronium IV. The patient was intubated with a 7.5 Korean cuffed endotracheal tube. Tube placement was confirmed by visualization of the tube and balloon passing through the cords, capnometry and subsequent chest x-ray. Breath sounds were equal and well aerated bilaterally postintubation. No breath sounds over stomach. Patient tolerated procedure well. Emergent central line: CENTRAL VENOUS LINE: The site was prepped with ChloraPrep and sterilely draped. It was infiltrated with 1% lidocaine plain. The deep vein was cannulated using normal Seldinger technique. A triple lumen central line was placed in the right IJ site and secured with a sterile dressing. The patient tolerated the procedure well. No complications. Postprocedure x-rays ordered. Diagnosis Primary Impression: Severe sepsis Additional Impressions: Pneumonia Qualified Codes: J18.9 - Pneumonia, unspecified organism Influenza Acute respiratory failure Qualified Codes: J96.01 - Acute respiratory failure with hypoxia Admitting Information Admitting Physician Requests: Jermain Benitez MD Jan 07, 2018 17:54
[2018-01-07] MEDS ORDERED: MIDAZOLAM HCL 5 MG/ML VIAL (1 ML) ONE ×2 (18:14→20:23)
[2018-01-07] MEDS ORDERED: MIDAZOLAM HCL 5 MG/5 ML VIAL IV PUSH ONE ×2 (18:15→18:45)
[2018-01-07] MEDS ORDERED: MIDAZOLAM 100 MG/100 ML INJ 100 ML IV PRN (18:15)
--- NOTE | 2018-01-07 18:17 | RADRPT ---
EXAM DATE/TIME: 01/07/2018 17:49 [facility] COMPARISON: CHEST SINGLE AP, January 07, 2018, 17:15. INDICATIONS : Endotracheal tube placement. MEDICAL HISTORY : None. SURGICAL HISTORY : None. ENCOUNTER: Subsequent ACUITY: 1 day PAIN SCORE: Non-responsive. LOCATION: Bilateral upper chest FINDINGS: A single view of the chest demonstrates endotracheal tube in good position. Nasogastric tube enters s tomach. Bilateral mostly basilar lung consolidation slightly increased from the earlier examination. CONCLUSION: 1. Endotracheal tube in good position. Slight increase in bilateral lung consolidation. Fred Elizabeth MD on January 07, 2018 at 18:13 Board Certified Radiologist. This report was verified electronically.
[2018-01-07 18:26] LABS: BILIRUBIN, URINE MOD (NEG); BLOOD, URINE MOD (NEG); GLUCOSE,URINE NEG (NEG); KETONE, URINE TRACE mg/dL (NEG); NITRITE,URINE NEG (NEG); URINE LEUKOCYTE ESTERASE NEG (NEG)
[2018-01-07 18:38] LABS: URINE COLOR BROWN (YELLW/STRAW)
[2018-01-07 18:40] LABS: MUCUS URINE FEW /lpf (OCC); WHITE BLOOD CELL CLUMPS OCC
[2018-01-07 18:41] LABS: AMORPHOUS SEDIMENT, URINE MOD; BACTERIA, URINE OCC /hpf; RBC, URINE 0-3 /hpf (0-3); SQUAMOUS EPITHELIAL CELL URINE 0-5 /hpf (0-5)
[2018-01-07] MEDS: MIDAZOLAM 100 MG/NS 100 ML DRIP Premix IV PRN ×2 (18:50→23:17)
[2018-01-07] MEDS ORDERED: FLUTICASONE PROPIONATE 44 MCG/ACT 10.6 GM INHALER INH PRN (19:15)
[2018-01-07] MEDS ORDERED: NOREPINEPHRINE 4 MG/4 ML AMP ONE (19:18)
[2018-01-07] MEDS ORDERED: SODIUM CHLOR 0.9% 1000 ML INJ 1,000 ML IV SCH (19:27)
[2018-01-07] MEDS ORDERED: LACTULOSE SYRUP 20 GM/30 ML CUP PO PRN (19:30)
[2018-01-07] MEDS ORDERED: SENNOSIDES 8.6 MG TAB PO PRN (19:30)
[2018-01-07] MEDS ORDERED: CHLORHEXIDINE GLUCONATE 2 % 1 PACK (2 CLOTHS) TOP PRN (19:30)
[2018-01-07] MEDS ORDERED: TERBUTALINE INJ 1 MG/ML AMP SQ PRN ×2 (19:30→22:30)
[2018-01-07] MEDS ORDERED: MIDAZOLAM HCL 2 MG/2 ML VIAL IV PUSH PRN (19:30)
[2018-01-07] MEDS ORDERED: PROPOFOL 1000 MG/100 ML INJ 100 ML IV PRN (19:30)
[2018-01-07] MEDS ORDERED: MISCELLANEOUS NURSING INFORMATION XX SCH (19:30)
[2018-01-07] MEDS ORDERED: RESP: ALBUTEROL 2.5 MG/IPRATROPIUM 0.5 MG NEB (PRN) INH (19:30)
[2018-01-07] MEDS ORDERED: MAGNESIUM HYDROXIDE SUSP 30 ML CUP PO PRN (19:30)
[2018-01-07] MEDS ORDERED: SODIUM CHLORIDE 0.9% FLUSH 10 ML FLUSH IV FLUSH PRN (19:30)
[2018-01-07] MEDS ORDERED: ACETAMINOPHEN 325 MG TAB PO PRN (19:30)
[2018-01-07] MEDS ORDERED: BISACODYL 10 MG SUPP RECTAL PRN (19:30)
[2018-01-07] MEDS ORDERED: NOREPINEPHRINE-DEXTROSE DRIP 250 ML IV PRN (19:30)
[2018-01-07] MEDS: OSELTAMIVIR PHOSPHATE 30 MG/5 ML ORAL SYRINGE PO SCH ×2 (19:45→21:00)
--- NOTE | 2018-01-07 19:50 | RADRPT ---
EXAM DATE/TIME: 01/07/2018 19:05 [facility] COMPARISON: CHEST SINGLE AP, January 07, 2018, 17:49. INDICATIONS : Central line placement. MEDICAL HISTORY : None. SURGICAL HISTORY : None. ENCOUNTER: Subsequent ACUITY: 1 day PAIN SCORE: Non-responsive. LOCATION: upper chest FINDINGS: A single view of the chest demonstrates endotracheal tube in good position. NG enters stomach. Right central line in superior vena cava. Bilateral mostly basilar and perihilar consolidation. No signific ant effusion. No pneumothorax. CONCLUSION: 1. Right central line in superior vena cava without pneumothorax. Slight increase in bilateral lung c onsolidation since earlier exam. Fred Elizabeth MD on January 07, 2018 at 19:47 Board Certified Radiologist. This report was verified electronically.
[2018-01-07] MEDS ORDERED: PIPERACIL-TAZO 4.5 GM PREMIX 100 ML IV SCH (20:00)
[2018-01-07] MEDS ORDERED: CHLORHEXIDINE 0.12% (ORAL KIT) 15 ML CUP MT SCH (20:00)
[2018-01-07] MEDS ORDERED: fentaNYL CITRATE 250 MCG/5 ML AMP IV PUSH ONE (20:30)
[2018-01-07] MEDS ORDERED: MIDAZOLAM HCL 2 MG/2 ML VIAL IV PUSH ONE (20:30)
[2018-01-07] MEDS ORDERED: SODIUM CHLOR 0.9% IV SCH (21:00)
[2018-01-07] MEDS ORDERED: SODIUM CHLORIDE 0.9% FLUSH 10 ML FLUSH IV FLUSH SCH (21:00)
[2018-01-07] MEDS ORDERED: DOCUSATE SODIUM 50 MG/SENNA 8.6 MG TAB PO SCH (21:00)
[2018-01-07] MEDS ORDERED: FAMOTIDINE 20 MG/2 ML VIAL IV PUSH SCH (21:00)
[2018-01-07] MEDS ORDERED: EPOPROSTENOL IV SCH (21:00)
[2018-01-07] MEDS ORDERED: CISATRACURIUM INJ 100 MG in SODIUM CHLOR 0.9% 250 ML INJ 250 ML IV PRN (21:00)
[2018-01-07] MEDS ORDERED: carBAMazepine 200 MG TAB PO SCH (21:00)
[2018-01-07] MEDS ORDERED: Vancomycin Consult Pharmacy 1 EA OTHER SCH (21:00)
--- NOTE | 2018-01-07 21:53 | HHI.HP ---
HPI Service Critical Care Medicine Primary Care Physician Er Physician Admission Diagnosis severe sepsis, pneumonia, ARDS, acute respiratory failure Diagnosis: Travel History International Travel<30 Days: No Contact w/Intl Traveler <30 Da: No Traveled to Known Affected Are: No History of Present Illness 47-year-old female with history of seizure disorder, hyperlipidema, GERD, migraines, multiple sclerosis and bronchial asthma was brought in by her for evaluation of shortness of breath. The patient has had upper respiratory symptoms for the past several days, was seen at [facility] emergency department yesterday evening and was diagnosed with influenza B. Throughout the day today she had worsening shortness of breath. She tried using her albuterol throughout the day today without any improvement. Upon arrival to [facility] emergency room the patient was tachypneic with moderate to severe respiratory distress with bilateral wheezes/rhonchi with poor air movement bilaterally. Her heart rate was in the 140s, sinus, and she was hypotensive. O2 saturation was in the 70s on room air. She was immediately placed on BiPAP with improvement in O2 saturation to 90%. She was provided 3 DuoNeb treatments and IV Solu-Medrol with only minimal improvement. Patient remained tachypneic. Chest x-ray shows bilateral perihilar infiltrates. She was intubated by ED attending at [facility], the center line was placed and the patient was started on Levophed and transferred to [facility]. Review of Systems ROS Unobtainable patient is sedated and intubated Past Family Social History Allergies: Coded Allergies: Sulfa (Sulfonamide Antibiotics) (Unverified Allergy, Severe, rash, 07/10/17 ) aspirin (Unverified Allergy, Severe, nausea, 07/10/17) codeine (Unverified Allergy, Severe, rash, 07/10/17) *MDRO Multi-Drug Resistant Organism (Verified Adverse Reaction, Unknown, MRSA, 06/25/17) MRSA (chest wound) - 12/08/16 Past Medical History Seizure disorder Hyperlipidemia GERD Migraine Multiple sclerosis Past Surgical History Unavailable Reported Medications Reported Meds & Active Scripts Active Phenergan (Promethazine HCl) 25 Mg Tablet 25 Mg PO Q6H PRN 10 Days Hyosyne Liq Drops (Hyoscyamine Sulfate) 0.125 Mg/Ml Soln 0.125 Mg PO Q4H PRN Reported Flovent Hfa 10.6 GM Inh (Fluticasone Propionate) 44 Mcg/Act Inh 2 Puff INH BID PRN Use daily at the same time. Ventolin Hfa 18 GM Inh (Albuterol Sulfate) 90 Mcg/Act Aer 2 Puff INH Q4-6H PRN Maxalt (Rizatriptan Benzoate) 10 Mg Tab 1 Cap PO PRN Provigil (Modafinil) 100 Mg Tab 100 Mg PO BID PRN Zyrtec (Cetirizine HCl) 10 Mg Tablet 1 PO DAILY Zoloft (Sertraline HCl) 50 Mg Tab 50 Mg PO DAILY Tecfidera (Dimethyl Fumarate) 240 Mg Cap 240 Mg PO BID Verapamil (Verapamil HCl) 40 Mg Tab 40 Mg PO BID Zocor (Simvastatin) 20 Mg Tab 20 Mg PO DAILY Tegretol (Carbamazepine) 200 Mg Tab 200 Mg PO BID Active Ordered Medications Current Medications Medications (Trade) Dose Ordered Sig/Negrita Route PRN Reason Start Time Stop Time Status Last Admin Dose Admin Midazolam HCl 100 ml @ 2 mls/hr TITRATE PRN IV SEDATION 01/07/18 19:15 01/08/18 00:51 Carbamazepine (TEGretol) 200 mg BID PO 01/07/18 21:00 Fluticasone Propionate (Flovent Hfa 44 Mcg Inh) 2 puff BID PRN INH SHORTNESS OF BREATH 01/07/18 19:15 Sertraline HCl (Zoloft) 50 mg DAILY PO 01/08/18 09:00 Pravastatin Sodium (Pravachol) 40 mg DAILY PO 01/08/18 09:00 Terbutaline Sulfate (Brethine Inj) 1 mg UNSCH PRN SQ For Extravasation 01/07/18 19:30 Oseltamivir Phosphate (Tamiflu Liq) 75 mg BID PO 01/07/18 19:45 Sodium Chloride 1,000 ml @ 84 mls/hr [id number] IV 01/07/18 19:27 01/07/18 21:37 Sodium Chloride (NS Flush) 2 ml UNSCH PRN IV FLUSH FLUSH AFTER USING IV ACCESS 01/07/18 19:30 Sodium Chloride (NS Flush) 2 ml BID IV FLUSH 01/07/18 21:00 01/07/18 21:00 Acetaminophen (Tylenol) 650 mg Q6H PRN PO PAIN 1-10 AND/OR FEVER >101F 01/07/18 19:30 Famotidine (Pepcid Inj) 20 mg Q12HR IV PUSH 01/07/18 21:00 Midazolam HCl (Versed Inj) 2 mg Q1H PRN IV PUSH SEDATION 01/07/18 19:30 Albuterol/ Ipratropium (Duoneb Neb) 1 ampule Q4HR NEB INH 01/07/18 20:00 01/08/18 00:33 Albuterol/ Ipratropium (Duoneb Neb) 1 ampule Q2HR NEB PRN INH WHEEZING 01/07/18 19:30 Heparin Sodium (Porcine) (Heparin Inj) 5,000 units Q8H SQ 01/07/18 22:00 Miscellaneous Information 1 [id number] XX 01/07/18 19:30 01/07/18 19:30 Chlorhexidine Gluconate (Chlorhexidine 2% Cloth) 3 pack Taper DAILY@04 TOP 01/08/18 04:00 01/04/19 03:59 Chlorhexidine Gluconate (Chlorhexidine 2% Cloth) 3 pack UNSCH PRN TOP HYGIENIC CARE 01/07/18 19:30 Senna/Docusate Sodium (Yvette-Colace) 1 tab BID PO 01/07/18 21:00 Magnesium Hydroxide (Milk Of Magnesia Liq) 30 ml Q12H PRN PO Mild constipation 01/07/18 19:30 Sennosides (Senokot) 17.2 mg Q12H PRN PO Moderate constipation 01/07/18 19:30 Bisacodyl (Dulcolax Supp) 10 mg DAILY PRN RECTAL SEVERE CONSITIPATION 01/07/18 19:30 Lactulose (Lactulose Liq) 30 ml DAILY PRN PO SEVERE CONSITIPATION 01/07/18 19:30 Chlorhexidine Gluconate (Peridex 0.12% Liq) 15 ml BID@08,20 MT 01/07/18 20:00 01/07/18 20:00 Propofol 100 ml @ 2.31 mls/hr TITRATE PRN IV SEDATION 01/07/18 19:30 Piperacillin Sod/ Tazobactam Sod 100 ml @ 200 mls/hr Q6H IV 01/07/18 20:00 01/07/18 23:42 Azithromycin 500 mg/Sodium Chloride 250 ml @ 250 mls/hr Q24H IV 01/08/18 18:00 Pharmacy Profile Note 0 ml @ 0 mls/hr UNSCH OTHER 01/07/18 21:00 Methylprednisolone Sodium Succinate (SoluMEDROL INJ) 40 mg Q6H IV PUSH 01/07/18 23:00 01/07/18 23:34 Cisatracurium Besylate 100 mg/ Sodium Chloride 260 ml @ 12.94 mls/ hr TITRATE PRN IV TOF 1/4 01/07/18 21:00 01/07/18 23:15 Epoprostenol Sodium 45 ml/ Sodium Chloride 100 ml @ 5 mls/hr Q8H NEB 01/07/18 22:00 01/07/18 23:14 Norepinephrine Bitartrate 16 mg/ Dextrose 250 ml @ 1.87 mls/hr TITRATE PRN IV Blood pressure management 01/07/18 22:30 01/07/18 23:16 Terbutaline Sulfate (Brethine Inj) 1 mg UNSCH PRN SQ For Extravasation 01/07/18 22:30 Vasopressin 40 units/Dextrose 100 ml @ 1.5 mls/hr Q24H IV 01/07/18 23:18 01/07/18 23:35 Sodium Bicarbonate 150 meq/Dextrose 1,150 ml @ 75 mls/hr [id number] IV 01/08/18 00:45 01/08/18 00:45 Epinephrine HCl 2 mg/Dextrose 252 ml @ 22.68 mls/ hr TITRATE PRN IV Blood Pressure Management 01/08/18 00:45 01/08/18 01:45 Phenylephrine HCl 80 mg/Dextrose 500 ml @ 15 mls/hr TITRATE PRN IV Blood Pressure Management 01/08/18 01:00 Family History Both parents and sisters are at the bedside without significant past medical history Social History Negative for tobacco, alcohol, or illicit drug abuse Physical Exam Vital Signs Vital Signs Date Time Temp Pulse Resp B/P (MAP) Pulse Ox O2 Delivery O2 Flow Rate FiO2 01/07/18 20:32 98.8 133 27 98/49 (65) 73 01/07/18 19:45 133 33 108/72 (84) 82 01/07/18 18:30 132 88/32 (50) 90 Ventilator 01/07/18 18:15 146 154/64 (94) 96 Ventilator 01/07/18 18:00 134 123/39 (67) 95 Ventilator 01/07/18 17:48 146 147/44 (78) 89 Ventilator 01/07/18 17:42 93 100 01/07/18 17:35 100 01/07/18 17:35 138 68/50 (56) 100 BiPAP 01/07/18 17:00 90 Non-Rebreather 01/07/18 17:00 90 Non-Rebreather 01/07/18 16:45 99.1 144 32 80/38 (52) 89 01/07/18 14:20 91 100 Physical Exam GENERAL: Obese female in severe respiratory distress, sedated and intubated SKIN: Warm and dry. HEAD: Normocephalic. EYES: No scleral icterus. No injection or drainage. NECK: Supple, trachea midline. No JVD or lymphadenopathy. CARDIOVASCULAR: Regular rate and rhythm without murmurs, gallops, or rubs. RESPIRATORY: Breath sounds equal bilaterally. No accessory muscle use. GASTROINTESTINAL: Abdomen soft, non-tender, nondistended. MUSCULOSKELETAL: No cyanosis, or edema. BACK: Nontender without obvious deformity. NEURO EXAM: The patient is sedated and intubated, pupils are reactive bilaterally, moves all 4 extremities. Laboratory Laboratory Tests Test 01/07/18 16:58 01/07/18 17:05 01/07/18 18:12 Prothrombin Time 12.0 Prothromb Time International Ratio 1.2 Activated Partial Thromboplast Time 25.4 Blood Urea Nitrogen 21 Creatinine 2.20 Random Glucose 185 Total Protein 7.3 Albumin 3.3 Calcium Level 8.3 Alkaline Phosphatase 48 Aspartate Amino Transf (AST/SGOT) 90 Alanine Aminotransferase (ALT/SGPT) 58 Total Bilirubin 1.3 Sodium Level 129 Potassium Level 3.4 Chloride Level 97 Carbon Dioxide Level 18.0 Anion Gap 14 Estimat Glomerular Filtration Rate 24 Lactic Acid Level 5.7 Total Creatine Kinase 255 Creatine Kinase MB 0.7 Creatine Kinase MB % 0.3 Troponin I LESS THAN 0.02 Human Chorionic Gonadotropin, Quant LESS THAN 1 Blood Gas Puncture Site RT RADIAL Blood Gas Patient Temperature 98.6 Blood Gas HCO3 18 Blood Gas Base Excess -7.8 Blood Gas Oxygen Saturation 89 Arterial Blood pH 7.29 Arterial Blood Partial Pressure CO2 38 Arterial Blood Partial Pressure O2 70 Arterial Blood Oxygen Content 18.3 Arterial Blood Carboxyhemoglobin 1.2 Arterial Blood Methemoglobin 1.0 Blood Gas Hemoglobin 14.7 Oxygen Delivery Device BIPAP Blood Gas Ventilator Setting EPAP 5/IPAP 15 Blood Gas Inspired Oxygen 100 Urine Color BROWN Urine Turbidity CLOUDY Urine pH 6.0 Urine Specific [place] 1.020 Urine Protein 100 Urine Glucose (UA) NEG Urine Ketones TRACE Urine Occult Blood MOD Urine Nitrite NEG Urine Bilirubin MOD Urine Leukocyte Esterase NEG Urine RBC 0-3 Urine WBC 3-5 Urine WBC Clumps OCC Urine Squamous Epithelial Cells 0-5 Urine Amorphous Sediment MOD Urine Bacteria OCC Urine Mucus FEW Microscopic Urinalysis Comment CATH-CULTURE IND Date/Time Source Procedure Growth Status 01/07/18 17:03 Blood Peripheral Aerobic Blood Culture Pending Received 01/07/18 17:03 Blood Peripheral Anaerobic Blood Culture Pending Received 01/07/18 17:45 Sputum Endotracheal Gram Stain Pending Received 01/07/18 17:45 Sputum Endotracheal Sputum Culture Pending Received 01/07/18 18:12 Urine Catheterized Urine Urine Culture Pending Received Result Diagram: 01/07/18 1658 Imaging Last 24 hours Impressions Chest X-Ray 01/07/18 1647 Signed Impressions: Service Date/Time: Sunday, January 07, 2018 17:15 - CONCLUSION: Bilateral predominantly perihilar pneumonic infiltrates. Lincoln Bee MD Septic Shock Reassessment Septic shock perfusion: reassessment completed Caprini VTE Risk Assessment Caprini VTE Risk Assessment: Mod/High Risk (score >= 2) Caprini Risk Assessment Model Point Value = 1 Point Value = 2 Point Value = 3 Point Value = 5 Age 41-60 Minor surgery BMI > 25 kg/m2 Swollen legs Varicose veins or History of unexplained or recurrent spontaneous Oral contraceptives or hormone replacement Sepsis (< 1 month) Serious lung disease, including pneumonia (< 1 month) Abnormal pulmonary function Acute myocardial infarction Congestive heart failure (< 1 month) History of inflammatory bowel disease Medical patient at bed rest Age 61-74 Arthroscopic surgery Major open surgery (> 45 min) Laparoscopic surgery (> 45 min) Malignancy Confined to bed (> 72 hours) Immobilizing plaster cast Central venous access Age >= 75 History of VTE Family history of VTE Factor V Leiden Prothrombin [id number] Lupus anticoagulant Anticardiolipin antibodies Elevated serum homocysteine Heparin-induced thrombocytopenia Other congenital or acquired thrombophilia Stroke (< 1 month) Elective arthroplasty Hip, pelvis, or leg fracture Acute spinal cord injury (< 1 month) Prophylaxis Regimen Total Risk Factor Score Risk Level Prophylaxis Regimen 0-1 Low Early ambulation 2 Moderate Order ONE of the following: *Sequential Compression Device (SCD) *Heparin 5000 units SQ BID 3-4 Higher Order ONE of the following medications: *Heparin 5000 units SQ TID *Enoxaparin/Lovenox 40 mg SQ daily (WT < 150 kg, CrCl > 30 mL/min) *Enoxaparin/Lovenox 30 mg SQ daily (WT < 150 kg, CrCl > 10-29 mL/min) *Enoxaparin/Lovenox 30 mg SQ BID (WT < 150 kg, CrCl > 30 mL/min) AND/OR *Sequential Compression Device (SCD) 5 or more Highest Order ONE of the following medications: *Heparin 5000 units SQ TID (Preferred with Epidurals) *Enoxaparin/Lovenox 40 mg SQ daily (WT < 150 kg, CrCl > 30 mL/min) *Enoxaparin/Lovenox 30 mg SQ daily (WT < 150 kg, CrCl > 10-29 mL/min) *Enoxaparin/Lovenox 30 mg SQ BID (WT < 150 kg, CrCl > 30 mL/min) AND *Sequential Compression Device (SCD) Assessment and Plan Assessment and Plan Respiratory failure - Viral/bacteria pneumonia - Influenza B - Severe ARDS - Mechanical ventilation - Prone position bed when available - DuoNeb scheduled and when necessary Pneumonia - Positive for influenza B - Tamiflu - Broad-spectrum antibiotic - Panculture - Follow-up cultures and sensitivity - Infectious disease consultation Seizure disorder - Tegretol History of multiple sclerosis - IV steroid Septic shock - Aggressive IV fluid hydration - Flowtrack - Levophed, vasopressin, Luis-Synephrine, epinephrine drip DVT GI prophylaxis - Teds SCDs - Subcutaneous heparin - Pepcid Extremely poor prognosis Critical Care: The total critical care time was 105 minutes. Time to perform other separately billable procedures was not included in the critical care time. Fermín Dennis MD Jan 07, 2018 21:53
[2018-01-07] MEDS ORDERED: EPOPROSTENOL NEB SOLUTION 30 NG/KG/MIN 100 ML NEB SCH ×2 (22:00)
[2018-01-07] MEDS ORDERED: VANCOMYCIN INJ 1,250 MG in SODIUM CHLOR 0.9% 250 ML INJ 250 ML IV ONE (22:00)
[2018-01-07] MEDS ORDERED: HEPARIN SODIUM - SQ 10,000 UNITS/ML VIAL SQ SCH (22:00)
[2018-01-07] MEDS ORDERED: SODIUM BICARBONATE 8.4% INJ 50 MEQ/50 ML SYR ONE (22:25)
[2018-01-07] MEDS ORDERED: NOREPINEPHRINE INJ 16 MG in DEXTROSE 5% IN WATER INJ 234 ML IV PRN ×2 (22:30)
[2018-01-07] MEDS ORDERED: PHENYLEPHRINE INJ 40 MG in DEXTROSE 5% IN WATE 500 ML INJ 496 ML IV PRN ×2 (22:30)
[2018-01-07] MEDS ORDERED: ALBUMIN 5% INJ 500 ML IV ONE (22:30)
--- NOTE | 2018-01-07 22:46 | RADRPT ---
EXAM DATE/TIME: 01/07/2018 22:22 [facility] COMPARISON: CHEST SINGLE AP, January 07, 2018, 19:05. INDICATIONS : Respiratory failure. MEDICAL HISTORY : Gastroesophageal reflux disease. Asthma, Arthritis. SURGICAL HISTORY : Hysterectomy. Left thoracotomy. ENCOUNTER: Subsequent ACUITY: 1 day PAIN SCORE: Non-responsive. LOCATION: Bilateral chest FINDINGS: A single view of the chest demonstrates endotracheal tube in good position. NG enters stomach. Right central line in superior vena cava. Bilateral mostly basilar airspace consolidation and pleural effus ions. No pneumothorax. CONCLUSION: 1. Bilateral mostly basilar airspace consolidation similar to January 07. Support apparatus unchange d. Fred Elizabeth MD on January 07, 2018 at 22:43 Board Certified Radiologist. This report was verified electronically.
[2018-01-07 22:47] LABS: HEMATOCRIT 40.8 % (35.0-46.0); HEMOGLOBIN 13.7 GM/DL (11.6-15.3); MEAN CORPUSCULAR HEMOGLOBIN 31.2 PG (27.0-34.0); MEAN CORPUSCULAR HGB CONC 33.5 % (32.0-36.0); MEAN PLATELET VOLUME 8.7 FL (7.0-11.0); PLATELET COUNT 86 TH/MM3 (150-450); RED BLOOD COUNT 4.39 MIL/MM3 (4.00-5.30); RED CELL DISTRIBUTION WIDTH 13.1 % (11.6-17.2); WHITE BLOOD COUNT 0.4 TH/MM3 (4.0-11.0)
[2018-01-07] MEDS ORDERED: methylPREDNISolone SOD SUCC 40 MG/1 ML VIAL IV PUSH SCH (23:00)
[2018-01-07] MEDS ORDERED: VASOPRESSIN INJ 40 UNITS in DEXTROSE 5% IN WATER 100ML INJ 98 ML IV SCH ×2 (23:18)
[2018-01-07 23:48] LABS: BANDS 7 % (0-6); LYMPHOCYTES 70 % (9-44); METAMYELOCYTES 12 % (0-1); MONOCYTES 3 % (0-8); MYELOCYTES 6 % (0-0); PLASMA CELLS 1 % (0-0); POLYS (SEG NEUTROPHILS) 1 % (16-70)
[2018-01-07 23:51] LABS: NEUTROPHIL # MANUAL DIFF 0.1 TH/MM3 (1.8-7.7)
[2018-01-07 23:53] LABS: ACANTHOCYTES OCC (NORMAL); OVALOCYTES 1+ (NORMAL)
[2018-01-08] VITALS (12 sets, daily range): BP systolic 0–125; BP diastolic 0–75; PULSE 0–146; RESP 17–153; TEMP 101.3; O2SAT 55–80
[2018-01-08] MEDS ORDERED: SODIUM BICARBONATE 8.4% INJ 50 MEQ/50 ML SYR ONE (00:28)
[2018-01-08] MEDS ORDERED: SODIUM BICARBONATE 8.4% INJ 100 ML ONE ×2 (00:28→00:33)
[2018-01-08] MEDS: RESP: ALBUTEROL 2.5 MG/IPRATROPIUM 0.5 MG NEB (SCH) INH (00:33)
[2018-01-08] MEDS ORDERED: EPINEPHrine HCL (1:10,000) 1 MG/10 ML SYRINGE ONE (00:41)
[2018-01-08] MEDS ORDERED: EPINEPHrine (1:1000) INJ 2 MG in DEXTROSE 5% IN WATER INJ 250 ML IV PRN ×2 (00:45)
[2018-01-08] MEDS ORDERED: SODIUM BICARBONATE 8.4% INJ 150 MEQ in DEXTROSE 5% IN WATE 1000ML INJ 1,000 ML IV SCH ×2 (00:45)
[2018-01-08] MEDS: MIDAZOLAM 100 MG/NS 100 ML DRIP Premix IV PRN (00:51)
[2018-01-08] MEDS ORDERED: PHENYLEPHRINE HCL 80 MG/D5W 492 ML ADMIX IV PRN ×2 (01:00)
[2018-01-08] MEDS ORDERED: SODIUM BICARBONATE 8.4% INJ 200 ML ONE (01:02)
[2018-01-08] MEDS ORDERED: SODIUM BICARBONATE 8.4% INJ 50 MEQ/50 ML SYR IV ONE (01:54)
[2018-01-08] MEDS ORDERED: EPINEPHrine HCL (1:10,000) 1 MG/10 ML SYRINGE IV ONE (01:54)
[2018-01-08] MEDS ORDERED: CHLORHEXIDINE GLUCONATE 2 % 1 PACK (2 CLOTHS) TOP SCH (04:00)
[2018-01-08] MEDS ORDERED: SERTRALINE HCL 50 MG TAB PO SCH (09:00)
[2018-01-08] MEDS ORDERED: PRAVASTATIN SOD 40 MG TAB PO SCH (09:00)
[2018-01-08] MEDS ORDERED: AZITHROMYCIN INJ 500 MG in SODIUM CHLOR 0.9% 250 ML INJ 250 ML IV SCH (18:00)
--- NOTE | 2018-01-08 18:54 | EKG ---
Date Performed: 01/07/2018 Time Performed: 17:59:36 PTAGE: 47 years EKG: SINUS TACHYCARDIA NONSPECIFIC T-WAVE ABNORMALITY When compared to previous tracing, sinus r ate is faster. Nonspecific ST changes are more prominant. ABNORMAL RHYTHM ECG PREVIOUS TRACING : 12/10/2016 00.42 DOCTOR: Killian Rbuio Interpretating Date/Time 01/08/2018 18:53:04
--- NOTE | 2018-01-17 18:11 | HHI.DS ---
Summary Note Date of : Jan 08, 2018 Time Of : 0155 Admission Date Jan 07, 2018 at 18:42 Admitting Diagnosis severe sepsis, pneumonia, ARDS, acute respiratory failure Diagnosis at Time of : (1) Respiratory failure, acute ICD Code: J96.00 - Acute respiratory failure, unspecified whether with hypoxia or hypercapnia (2) Severe sepsis ICD Code: A41.9 - Sepsis, unspecified organism; R65.20 - Severe sepsis without septic shock (3) ARDS (adult respiratory distress syndrome) ICD Code: J80 - Acute respiratory distress syndrome (4) Influenza B ICD Code: J10.1 - Influenza due to other identified influenza virus with other respiratory manifestations Brief History 47-year-old female with history of seizure disorder, hyperlipidema, GERD, migraines, multiple sclerosis and bronchial asthma was brought in by her for evaluation of shortness of breath. The patient has had upper respiratory symptoms for the past several days, was seen at [facility] emergency department yesterday evening and was diagnosed with influenza B. Throughout the day today she had worsening shortness of breath. She tried using her albuterol throughout the day today without any improvement. Upon arrival to [facility] emergency room the patient was tachypneic with moderate to severe respiratory distress with bilateral wheezes/rhonchi with poor air movement bilaterally. Her heart rate was in the 140s, sinus, and she was hypotensive. O2 saturation was in the 70s on room air. She was immediately placed on BiPAP with improvement in O2 saturation to 90%. She was provided 3 DuoNeb treatments and IV Solu-Medrol with only minimal improvement. Patient remained tachypneic. Chest x-ray shows bilateral perihilar infiltrates. She was intubated by ED attending at [facility], the center line was placed and the patient was started on Levophed and transferred to [facility]. Imaging Last 24 hours Impressions Chest X-Ray 01/07/18 [id number] Signed Impressions: Service Date/Time: Sunday, January 07, 2018 17:15 - CONCLUSION: Bilateral predominantly perihilar pneumonic infiltrates. Lincoln Bee MD Hospital Course After the transfer to [facility] the patient's clinical condition rapidly deteriorated, became profoundly hypotensive despite the maximum dose of 4 vasopressors. The x-ray shows significant ARDS pattern and the patient continued to be severely hypoxemic despite the aggressive ventilatory management. Her white count on admission was 0.4 with 0.1 neutrophils and significant number of myelocytes and metamyelocytes in differential. She was covered with broad-spectrum antibiotics, aggressively fluid resuscitated with administration of vasopressors without improvement of clinical condition. Due to ARDS, severe sepsis, and multiorgan failure, the patient has at 1:55 AM. Fermín Dennis MD Jan 17, 2018 18:11
== END 2018-01-08 01:55 | disposition expired | DRG 208 ==
LOC: PHED 16:39 → PHEDA 18:42 → HIME 20:15 → HIMN 01-08 01:20
PROVIDERS: ADMIT Internal Medicine Critical Care Medicine; ATTEND Internal Medicine Critical Care Medicine
PROC: 0BH17EZ Insertion of Endotracheal Airway into Trachea, Via Natural or Artificial Opening (ICD-10-PCS; principal; 2018-01-07)
PROC: 5A1935Z Respiratory Ventilation, Less than 24 Consecutive Hours (ICD-10-PCS; 2018-01-07)
PROC: 02HV33Z Insertion of Infusion Device into Superior Vena Cava, Percutaneous Approach (ICD-10-PCS; 2018-01-07)
PROC: 5A09357 Assistance with Respiratory Ventilation, Less than 24 Consecutive Hours, Continuous Positive Airway Pressure (ICD-10-PCS; 2018-01-07)
DX: J96.01 Acute respiratory failure with hypoxia (principal); R65.20 Severe sepsis without septic shock; J10.08 Influenza due to other identified influenza virus with other specified pneumonia; A41.9 Sepsis, unspecified organism; J18.9 Pneumonia, unspecified organism; G35 Multiple sclerosis; J80 Acute respiratory distress syndrome; G40.909 Epilepsy, unspecified, not intractable, without status epilepticus; J45.909 Unspecified asthma, uncomplicated; K21.9 Gastro-esophageal reflux disease without esophagitis; E78.5 Hyperlipidemia, unspecified; G43.909 Migraine, unspecified, not intractable, without status migrainosus; E66.9 Obesity, unspecified; Z68.30 Body mass index [BMI] 30.0-30.9, adult
CPT/HCPCS: 31500; 36556; 36600; 36620; 71045; 80053; 81001; 82550; 82552; 82805; 83605; 84484; 84702; 85007; 85027; 85610; 85730; 86403; 87040; 87070; 87086; 87205; 87641; 92950; 93005; 94002; 94640; 94664; 94799; 96361; 96365; 96375; J0171; J0456; J1325; J2250; J2370; J2543; J2920; J2930; J3010; J3370; J7030; J7050; J7060; J7070; P9045